=== PATIENT | female | born 1960 | race Caucasian/White ===

== ENCOUNTER 2023-12-20 04:00 | Inpatient (IN) | payer BC ==
[2023-12-20 04:41] LABS: Absolute Basophils 0.1 K/uL (0-0.5); Absolute Lymphocytes (CBC) 0.7 K/uL (0.7-4.9); Absolute Monocytes 0.4 K/uL (0.1-1.3); Absolute Neutrophil 10.5 K/uL (1.8-8.0); Basophils % 0.6 % (0-1.3); Eosinophils % 0.1 % (0-4.4); Hemoglobin 13.1 g/dL (12.0-15.0); Lymphocytes % 5.8 % (15.3-44.8); MCH 28.2 pg (27.0-35.0); MCV 88.1 fL (80-100); MPV 6.9 fL (7.6-11.3); Monocytes % 3.6 % (3.3-12.3); Neutrophils % 89.9 % (41.7-73.7); Platelets 327 thou/uL (152-406); RBC Red Blood Cell Count 4.66 M/uL (3.86-4.86); Red Cell Distribution Width 15.7 % (12.1-15.2)
[2023-12-20] MEDS ORDERED: HALOPERIDOL LACT 5 MG/ML INJ ONE (04:52)
[2023-12-20] MEDS ORDERED: FAMOTIDINE 20 MG/2 ML VIAL IV ONE (04:52)
[2023-12-20] MEDS ORDERED: ONDANSETRON 4 MG/2 ML VIAL ONE ×2 (04:52→06:34)
[2023-12-20] MEDS ORDERED: MORPHINE 4 MG/ML SYR ONE ×2 (04:52→06:35)
[2023-12-20] MEDS ORDERED: KETOROLAC 30 MG/ML INJ ONE (04:52)
[2023-12-20] MEDS ORDERED: NA CHLORIDE 0.9% 1,000 ML ONE ×2 (04:53→12:37)
[2023-12-20 05:07] LABS: Albumin 3.8 g/dL (3.4-5.0); Anion Gap 8.9 mEq/L (5.0-15.0); Bilirubin Total 0.3 mg/dL (0.2-1.0); Globulin 3.8 g/dL (2.3-3.5); Potassium 3.9 mEq/L (3.5-5.1); Protein, Total 7.6 g/dL (6.4-8.2)
[2023-12-20 05:31] LABS: Band Neutrophils 11 % (0-1); Differential Total Cells Count 100; Lymphocytes 9 % (15-42); Monocytes 3 % (0-10); Segmented Neutrophils 77 % (40-80)
[2023-12-20 05:32] LABS: Blood Morphology Comment NOT SEEN (NOT SEEN); Platelet Estimate ADEQ
--- NOTE | 2023-12-20 06:15 | EDPHYS ---
Physician Documentation [facility] Name: Debra Lowery Age: 63 yrs Sex: Female : 1960 Arrival Date: 12/20/2023 Time: 04:00 Bed 18 Private MD: ED Physician Jaime Ortiz HPI: 12/19 04:17 This 63 yrs old Female presents to ER via EMS with complaints of epigastric sp4 pain . 06:14 63-year-old female with a past medical history of hypertension presents with acute sp4 upper abdominal pain associated with vomiting. Pain started this morning... Historical: - Allergies: 04:07 No Known Allergies; vc1 - Home Meds: 04:07 metoprolol tartrate 50 mg Oral tablet [Active]; amlodipine 10 mg tablet [Active]; vc1 Seroquel 200 mg Oral tablet every day at bedtime [Active]; levocertrizine 5 mg nightly [Active]; - PMHx: 04:07 Hypertensive disorder; vc1 - PSHx: 04:07 None; vc1 - Immunization history:: Client reports having NOT received the Covid vaccine. Flu vaccine is not up to date. - Infectious Disease History:: Denies. - Social history:: Smoking status: Patient reports the use of cigarette tobacco products, smokes one-half pack cigarettes per day. - Family history:: not pertinent. ROS: 06:14 Constitutional: Negative for fever, chills, and weight loss, positive upper abdominal sp4 pain positive vomiting 06:14 All other systems are negative, Exam: 06:14 Constitutional: This is a well developed, well nourished patient who is awake, alert, sp4 and in no acute distress. Head/Face: Normocephalic, atraumatic. Eyes: Pupils equal round and reactive to light, extra-ocular motions intact. Lids and lashes normal. Conjunctiva and sclera are not injected. Cornea within normal limits. Periorbital areas with no swelling, redness, or edema. ENT: Nares patent. No nasal discharge, no septal abnormalities noted. Tympanic membranes are normal and external auditory canals are clear. Oropharynx with no redness, swelling, or masses, exudates, or evidence of obstruction, uvula midline. Mucous membranes moist. Neck: Trachea midline, no thyromegaly or masses palpated, and no cervical lymphadenopathy. Supple, full range of motion without nuchal rigidity, or vertebral point tenderness. Chest/axilla: Normal chest wall appearance and motion. Nontender with no deformity. No lesions are appreciated. Cardiovascular: Regular rate and rhythm with a normal S1 and S2. No gallops, murmurs, or rubs. Normal PMI, no JVD. No pulse deficits. Respiratory: Lungs have equal breath sounds bilaterally, clear to auscultation and percussion. No rales, rhonchi or wheezes noted. No increased work of breathing, no retractions or nasal flaring. Abdomen/GI: Soft, with normal bowel sounds. No distension or tympany. No guarding or rebound. Mild epigastric tenderness Back: No spinal tenderness. No costovertebral tenderness. Skin: Warm, dry with normal turgor. Normal color with no rashes, no lesions, and no evidence of cellulitis. MS/ Extremity: Pulses equal, no cyanosis. Neurovascular intact. Full, normal range of motion. Neuro: Awake and alert, GCS 15, oriented to person, place, time, and situation. Cranial nerves II-XII grossly intact. Motor strength 5/5 in all extremities. Sensory grossly intact. Psych: Awake, alert, with orientation to person, place and time. Behavior, mood, and affect are within normal limits Vital Signs: 04:05 BP 149 / 95; Pulse 96; Resp 20; Temp 97.8; Pulse Ox 88% on R/A; Weight 72.57 kg; Height vc1 5 ft. 3 in. ; Pain 10/10; 05:07 BP 147 / 101; Pulse 90; Resp 19 S; Pulse Ox 94% on 2 lpm NC; lg3 06:32 BP 158 / 103; Pulse 92; Resp 19; Pulse Ox 93% on 2 lpm NC; vc1 04:05 Body Mass Index 28.34 (72.57 kg, 160.02 cm) vc1 04:05 Pain Scale: Adult vc1 Jasper Coma Score: 06:14 Eye Response: spontaneous(4). Motor Response: obeys commands(6). Verbal Response: sp4 oriented(5). Total: 15. MDM: 04:19 Patient medically screened. sp4 06:09 ED course: EXAM: US Abdomen Limited, Gallbladder CLINICAL HISTORY: The patient is 63 sp4 years old and is Female; abd pain TECHNIQUE: Real-time ultrasound of the right upper quadrant with image documentation. COMPARISON: No relevant prior studies available. FINDINGS: Gallbladder: 3 mm gallbladder polyp. Possible tiny stones in the gallbladder fundus. Gallbladder wall thickness 2.7 mm. Negative sonographic Singh sign. Common bile duct: Common bile duct 4.7 mm in diameter. No stones. No dilation. Pancreas: Unremarkable as visualized. IMPRESSION: 3 mm gallbladder polyp. Possible tiny stones in the gallbladder fundus. Electronically signed by: Hallie Foster MD 12/20/2023 05:38 AM. 06:10 ED course: CT - IMPRESSION: 1. Findings consistent with acute interstitial edematous sp4 pancreatitis. No evidence of fluid collection. Correlate with pancreatic enzymes. 2. Mildly enlarged common bile duct, although visualized normal caliber on comparison same-day ultrasound. If there is concern for gallstone pancreatitis, MRCP is recommended. 3. Additional chronic and incidental findings above.. 06:14 Differential Diagnosis altered mental status, sepsis, flu. Data reviewed: vital signs, sp4 nurses notes, EMS record, lab test result(s), radiologic studies, CT scan, ultrasound. Consideration of Admission/Observation Patient was admitted/placed on observation. Escalation of care including admission/observation considered. Management of patient was discussed with the following: Hospitalist: Admitting team . ED course: Patient has signs of acute pancreatitis with elevated lipase findings indicative of pancreatitis on the CT. warrants admission for further management. 12/19 04:19 Order name: CBC with Diff; Complete Time: 06:08 sp4 12/19 04:19 Order name: CMP; Complete Time: 06:08 sp4 12/19 04:19 Order name: Lipase; Complete Time: 06:08 sp4 12/19 04:19 Order name: Urinalysis w/ reflexes; Complete Time: 07:00 sp4 12/19 04:57 Order name: Manual Differential; Complete Time: 06:08 EDMS 12/19 12:11 Order name: CBC with Automated Diff EDMS 12/19 12:11 Order name: CBC with Automated Diff EDMS 12/19 12:11 Order name: Comprehensive Metabolic Panel EDMS 12/19 12:11 Order name: Comprehensive Metabolic Panel EDMS 12/19 12:11 Order name: Lipid Profile EDHI 12/19 12:11 Order name: Lipid Profile EDMS 12/19 12:11 Order name: Protime (+INR) EDMS 12/19 12:11 Order name: Protime (+INR) EDMS 12/19 12:11 Order name: PTT, Activated Partial Thromb EDMS 12/19 12:11 Order name: PTT, Activated Partial Thromb EDMS 12/19 12:11 Order name: Troponin High Sensitivity EDMS 12/19 12:11 Order name: Troponin High Sensitivity EDMS 12/19 12:11 Order name: Lipase EDMS 12/19 04:19 Order name: CT Abd/Pelvis - IV Contrast Only sp4 12/19 04:58 Order name: Abdomen Exam Limited EDMS 12/19 07:05 Order name: Cholangiogram EDHI 12/19 12:11 Order name: CONS Physician Consult EDHI 12/19 04:19 Order name: IV Saline Lock; Complete Time: 04:46 sp4 12/19 04:19 Order name: Labs collected and sent; Complete Time: 04:46 sp4 Administered Medications: 05:05 Drug: Haloperidol IVP 2.5 mg/50 mL 2.5 mg IVP once; Place patient on a monitoring manager lg3 Route: IVP; Site: right antecubital; 05:20 Follow up: Response: No adverse reaction rs5 05:05 Drug: NS 0.9% IV 1000 ml IV at 1 bolus Per protocol; 1000 mL bolus Route: IV; Rate: 1 lg3 bolus; Site: right antecubital; 05:30 Follow up: Response: No adverse reaction rs5 05:05 Drug: Famotidine IVP 20 mg IVP once; dilute with 10 mL 0.9% NaCl; give over 2 minutes lg3 Route: IVP; Site: right antecubital; 05:30 Follow up: Response: No adverse reaction rs5 05:05 Drug: TORadol - Ketorolac IVP 15 mg IVP once Route: IVP; Site: right antecubital; lg3 05:20 Follow up: Response: No adverse reaction rs5 05:05 Drug: Ondansetron IVP 4 mg IVP once; over 2 minutes Route: IVP; Site: right antecubital;lg3 05:20 Follow up: Response: No adverse reaction rs5 05:05 Drug: morphine IVP or IV 4 mg IVP once over 4 mins Route: IVP; Infused Over: 4 mins; lg3 Site: right antecubital; 05:20 Follow up: Response: No adverse reaction rs5 07:11 Drug: morphine IVP or IV 4 mg IVP once over 4 mins Route: IVP; Infused Over: 4 mins; vc1 Site: right antecubital; 07:11 Drug: Ondansetron IVP 4 mg IVP once; over 2 minutes Route: IVP; Site: right antecubital;vc1 07:11 Drug: D5-1/2 NS with KCl IV 20 mEq/L 1000 ml IV at 125 ml/hr continuous Route: IV; vc1 Rate: 125 ml/hr; Site: right antecubital; Disposition Summary: 12/20/23 06:14 Hospitalization Ordered Notes: Hospitalization Status: Inpatient Admission sp4 Provider: Juan Pablo Roberson spChantelle Condition: Stable sp4 Problem: new sp4 Symptoms: have improved sp4 Bed/Room Type: Standard sp4 Location: Telemetry/MedSurg (Inpatient)(12/20/23 14:27) rs5 Room Assignment: 426(12/20/23 15:01) bp Diagnosis - Acute pancreatitis, abdominal pain with vomiting sp4 Forms: - Medication Reconciliation Form sp4 - SBAR form sp4 - Leadership Thank You Letter sp4 Signatures: Dispatcher [employer] EDJuan Carlos Goode RN RN bp Graciela Hays RN RN lg3 Yennifer Worthy RN RN vc1 Lo Acuna rv1 Nick Lomax RN RN rs5 Jaime Ortiz MD MD sp4 Ekaterina Hicks, PERIPHERAL VASCULAR TECH PERIPHERAL VASCULAR TECH [facility] Corrections: (The following items were deleted from the chart) 04:20 04:20 Abdomen Limited+US.RAD.BRZ ordered. EDMS EDMS 04:20 04:20 Abdomen Pelvis W Con+CT.RAD.BRZ ordered. EDMS EDMS 06:26 06:14 Telemetry/MedSurg (Inpatient) sp4 rv1 06:26 06:14 sp4 rv1 14:27 06:26 BR ER HOLD rv1 rs5 14:27 06:26 ERHOLD- rv1 rs5 15:01 14:27 404 rs5 bp
--- NOTE | 2023-12-20 06:15 | ER ---
Nurse's Notes [facility] Name: Debra Lowery Age: 63 yrs Sex: Female : 1960 Arrival Date: 12/20/2023 Time: 04:00 Bed 18 Private MD: Diagnosis: Acute pancreatitis, abdominal pain with vomiting Presentation: 12/19 04:05 Chief complaint: EMS states: epigastic pain times 3 weeks with vomiting times 3. vc1 Coronavirus screen: At this time, the client does not indicate any symptoms associated with coronavirus-19. Ebola Screen: Patient negative for fever greater than or equal to 101.5 degrees Fahrenheit, and additional compatible Ebola Virus Disease symptoms Patient denies exposure to infectious person. Patient denies travel to an Ebola-affected area in the 21 days before illness onset. No symptoms or risks identified at this time. Initial Sepsis Screen: Does the patient meet any 2 criteria? No. Patient's initial sepsis screen is negative. Does the patient have a suspected source of infection? No. Patient's initial sepsis screen is negative. Risk Assessment: Do you want to hurt yourself or someone else? Patient reports no desire to harm self or others. Onset of symptoms is unknown. Care prior to arrival: Medication(s) given: zofran 4 mg, IV initiated. 20 GA, in the right antecubital area. Activity prior to arrival: vomiting. Mechanism of Injury: No Mechanism of Injury. Transition of care: patient was not received from another setting of care. 04:05 Method Of Arrival: EMS: [facility] 04:05 Acuity: CESAR 3 vc1 Triage Assessment: 04:09 General: Appears in no apparent distress. uncomfortable, obese, Behavior is vc1 cooperative, restless. Pain: Complains of pain in epigastric area Pain does not radiate. Pain currently is 10 out of 10 on a pain scale. Quality of pain is described as sharp, stabbing, Pain began suddenly, 3 weeks ago Is continuous, Alleviated by medications. EENT: No deficits noted. No signs and/or symptoms were reported regarding the EENT system. Neuro: Level of Consciousness is awake, alert, obeys commands, Oriented to person, place, time, situation, Appropriate for age. Cardiovascular: No deficits noted. Respiratory: Airway is patent Respiratory effort is even, unlabored, Respiratory pattern is regular, symmetrical. GI: Abdomen is round non-distended, Reports epigastric pain, nausea, vomiting. : No deficits noted. No signs and/or symptoms were reported regarding the genitourinary system. Derm: No deficits noted. No signs and/or symptoms reported regarding the dermatologic system. Musculoskeletal: No deficits noted. No signs and/or symptoms reported regarding the musculoskeletal system. Historical: - Allergies: 04:07 No Known Allergies; vc1 - Home Meds: 04:07 metoprolol tartrate 50 mg Oral tablet [Active]; amlodipine 10 mg tablet [Active]; vc1 Seroquel 200 mg Oral tablet every day at bedtime [Active]; levocertrizine 5 mg nightly [Active]; - PMHx: 04:07 Hypertensive disorder; vc1 - PSHx: 04:07 None; vc1 - Immunization history:: Client reports having NOT received the Covid vaccine. Flu vaccine is not up to date. - Infectious Disease History:: Denies. - Social history:: Smoking status: Patient reports the use of cigarette tobacco products, smokes one-half pack cigarettes per day. - Family history:: not pertinent. Screenin:11 [facility] ED Fall Risk Assessment (Adult) History of falling in the last 3 months, vc1 including since admission No falls in past 3 months (0 pts) Confusion or Disorientation No (0 pts) Intoxicated or Sedated No (0 pts) Impaired Gait No (0 pts) Mobility Assist Device Used No (0 pt) Altered Elimination No (0 pt) Score/Fall Risk Level 0 - 2 = Low Risk Oriented to surroundings, Maintained a safe environment, Educated pt \T\ family on fall prevention, incl call for assistance when getting out of bed. Abuse screen: Denies threats or abuse. Nutritional screening: No deficits noted. Tuberculosis screening: No symptoms or risk factors identified. Assessment: 04:05 General: see triage assessment. vc1 05:00 General: Behavior is anxious. Neuro: Jade Agitation-Sedation Scale (RASS): +1 lg3 Restless Level of Consciousness is awake, alert, obeys commands. 06:31 Reassessment: Patient appears in no apparent distress at this time. No changes from vc1 previously documented assessment. Patient and/or family updated on plan of care and expected duration. Pain level reassessed. Patient is alert, oriented x 3, equal unlabored respirations, skin warm/dry/pink. Patient states symptoms have not improved. 06:44 Reassessment: No changes from previously documented assessment. Patient and/or family vc1 updated on plan of care and expected duration. Pain level reassessed. Patient is alert, oriented x 3, equal unlabored respirations, skin warm/dry/pink. 07:28 General: Appears in no apparent distress. uncomfortable, Behavior is calm, cooperative. rs5 Pain: Complains of pain in abdomen Pain currently is 3 out of 10 on a pain scale. Quality of pain is described as aching, Is continuous. Neuro: Level of Consciousness is awake, alert, obeys commands, Oriented to person, place, time, situation. Cardiovascular: Patient's skin is warm and dry. Rhythm is regular. Respiratory: Airway is patent Respiratory effort is even, unlabored, Respiratory pattern is regular, symmetrical. GI: Abdomen is round non-distended, Abd is soft and non tender X 4 quads. : No signs and/or symptoms were reported regarding the genitourinary system. EENT: No signs and/or symptoms were reported regarding the EENT system. Derm: Skin is intact, Skin is pink, warm \T\ dry. Musculoskeletal: Range of motion: intact in all extremities. Vital Signs: 04:05 BP 149 / 95; Pulse 96; Resp 20; Temp 97.8; Pulse Ox 88% on R/A; Weight 72.57 kg; Height vc1 5 ft. 3 in. ; Pain 10/10; 05:07 BP 147 / 101; Pulse 90; Resp 19 S; Pulse Ox 94% on 2 lpm NC; lg3 06:32 BP 158 / 103; Pulse 92; Resp 19; Pulse Ox 93% on 2 lpm NC; vc1 04:05 Body Mass Index 28.34 (72.57 kg, 160.02 cm) vc1 04:05 Pain Scale: Adult vc1 Mary Coma Score: 06:14 Eye Response: spontaneous(4). Motor Response: obeys commands(6). Verbal Response: sp4 oriented(5). Total: 15. ED Course: 04:05 Patient arrived in ED. vc1 04:07 Triage completed. vc1 04:12 Arm band placed on right wrist. vc1 04:13 Patient has correct armband on for positive identification. Bed in low position. Call vc1 light in reach. Side rails up X2. Pulse ox on. NIBP on. 04:13 Maintain EMS IV. Dressing intact. Good blood return noted. Site clean \T\ dry. Gauge \T\ vc 1 site: 20g RAC. 04:17 Jaime Ortiz MD is Attending Physician. sp4 05:04 hall monitor on. lg3 05:06 Yennifer Worthy, RN is Primary Nurse. vc1 05:23 Abdomen Exam Limited In Process Unspecified. EDMS 05:43 CT Abd/Pelvis - IV Contrast Only In Process Unspecified. EDMS 06:14 Juan Pablo Roberson is Hospitalizing Provider. sp4 06:57 Ekaterina Hicks NP is PHCP. rlh 07:26 No provider procedures requiring assistance completed. rs5 08:21 Cholangiogram In Process Unspecified. EDMS Administered Medications: 05:05 Drug: Haloperidol IVP 2.5 mg/50 mL 2.5 mg IVP once; Place patient on a potline monitor lg3 Route: IVP; Site: right antecubital; 05:20 Follow up: Response: No adverse reaction rs5 05:05 Drug: NS 0.9% IV 1000 ml IV at 1 bolus Per protocol; 1000 mL bolus Route: IV; Rate: 1 lg3 bolus; Site: right antecubital; 05:30 Follow up: Response: No adverse reaction rs5 05:05 Drug: Famotidine IVP 20 mg IVP once; dilute with 10 mL 0.9% NaCl; give over 2 minutes lg3 Route: IVP; Site: right antecubital; 05:30 Follow up: Response: No adverse reaction rs5 05:05 Drug: TORadol - Ketorolac IVP 15 mg IVP once Route: IVP; Site: right antecubital; lg3 05:20 Follow up: Response: No adverse reaction rs5 05:05 Drug: Ondansetron IVP 4 mg IVP once; over 2 minutes Route: IVP; Site: right antecubital;lg3 05:20 Follow up: Response: No adverse reaction rs5 05:05 Drug: morphine IVP or IV 4 mg IVP once over 4 mins Route: IVP; Infused Over: 4 mins; lg3 Site: right antecubital; 05:20 Follow up: Response: No adverse reaction rs5 07:11 Drug: morphine IVP or IV 4 mg IVP once over 4 mins Route: IVP; Infused Over: 4 mins; vc1 Site: right antecubital; 07:11 Drug: Ondansetron IVP 4 mg IVP once; over 2 minutes Route: IVP; Site: right antecubital;vc1 07:11 Drug: D5-1/2 NS with KCl IV 20 mEq/L 1000 ml IV at 125 ml/hr continuous Route: IV; vc1 Rate: 125 ml/hr; Site: right antecubital; Medication: 04:13 VIS not applicable for this client. vc1 Outcome: 06:14 Decision to Hospitalize by Provider. sp4 15:07 Patient left the ED. mb9 Signatures: Dispatcher [employer] EDMS Graciela Hays RN RN lg3 Yennifer Worthy RN RN vc1 Brenda Oseguera RN RN mb9 Nick Lomax RN RN rs5 Jaime Ortiz MD MD sp4 Ekaterina Hicks NP [facility]
[2023-12-20] MEDS ORDERED: D5.45NS W/KCL 20MEQ 1,000 ML IV ONE (06:35)
[2023-12-20 06:44] LABS: Sqamous Epithelial <5 /HPF (None Seen); Urine Bacteria None Seen /HPF (<20); Urine Bilirubin NEGATIVE (Negative); Urine Blood Negative (Negative); Urine Clarity Clear (Clear); Urine Color Colorless (Yellow); Urine Culture Reflex Order NOT NEEDED; Urine Glucose NEGATIVE (Negative); Urine Ketones NEGATIVE (Negative); Urine Microscopic Reflex YN ORDER UMIC; Urine Nitrite NEGATIVE (Negative); Urine Protein NEGATIVE (Negative); Urine RBC <5 /HPF (None Seen); Urine Urobilinogen Normal (Normal); Urine WBC <5 /HPF (<5); Urine pH 6.5 (5.0-7.0)
--- NOTE | 2023-12-20 07:50 | P.HP ---
Certification for Inpatient Patient admitted to: Inpatient With expected LOS: >2 Midnights Patient will require the following post-hospital care: None Practitioner: I am a practitioner with admitting privileges, knowledge of patient current condition, hospital course, and medical plan of care. Services: Services provided to patient in accordance with Admission requirements found in Title 42 Section 412.3 of the Code of Federal Regulations Patient History Date of Service: 12/20/23 Reason for admission: Gallstone pancreatitis History of Present Illness: Patient is a 63-year-old female who came to the hospital with abdominal pain. Pain was in the right upper quadrant. Patient denies any rebound or guarding. She has a family history of cholangiocarcinoma. Her brother recently of cholangiocarcinoma. He was treated at [facility]. Patient diagnostic studies were indicative of polyp in the gallbladder. Patient's pain is better controlled. Patient does not have any evidence of obstructive jaundice. Patient bilirubin is stable. Will go ahead and consult general surgery for further evaluation. MRCP is being obtained. Patient has a history of multiple medical issues including hypertension, allergic rhinitis and insomnia. Patient is on metoprolol, amlodipine, Zyrtec, and Seroquel. At this time, patient will be admitted for observation. - Past Medical/Surgical History -: Hypertension -: Insomnia -: Allergic rhinitis -: Prior knee surgery - Family History Brother Notes: Cholangiocarcinoma - Social History Smoking Status: Former smoker Alcohol use: No CD- Drugs: No Review of Systems 10-point ROS is otherwise unremarkable Physical Examination - Vital Signs Temperature: 98 F Blood Pressure: 140/80 Pulse: 100 Respirations: 18 Pulse Ox (%): 95 - Physical Exam General: Alert, In no apparent distress, Oriented x3 HEENT: Atraumatic, PERRLA, Mucous membr. moist/pink, EOMI, Sclerae nonicteric Neck: Supple, 2+ carotid pulse no bruit, No LAD, Without JVD or thyroid abnormality Respiratory: Clear to auscultation bilaterally, Normal air movement Cardiovascular: Regular rate/rhythm, Normal S1 S2 Gastrointestinal: Normal bowel sounds, Tenderness (Mild right upper quadrant tenderness) Musculoskeletal: No tenderness Integumentary: No rashes Neurological: Normal gait, Normal speech, Normal strength at 5/5 x4 extr, Normal tone, Normal affect Lymphatics: No axilla or inguinal lymphadenopathy - Studies Laboratory Data (last 24 hrs) 12/20/23 12/20/23 04:28 04:28 WBC 11.70 H Hgb 13.1 Hct 41.0 Plt Count 327 Sodium 133 L Potassium 3.9 BUN 10 Creatinine 0.58 Glucose 121 H Total Bilirubin 0.3 AST 15 ALT 22 Alkaline Phosphatase 113 Lipase 412 H Assessment & Plan - Problems (Diagnosis) (1) Gallstone pancreatitis Current Visit: Yes Status: Acute (2) Gallbladder polyp Current Visit: Yes Status: Acute (3) Hypertension Current Visit: Yes Status: Acute (4) Allergic rhinitis Current Visit: Yes Status: Acute (5) Family history of cholangiocarcinoma Current Visit: Yes Status: Acute - Plan Plan: 1. Patient with pancreatitis secondary to gallstones. Patient has a history of alcohol use. Patient's imaging studies revealed a gallbladder polyp. With patient's family history, it may be beneficial to proceed with laparoscopic cholecystectomy. MRCP to rule out choledocholithiasis.. If patient does have stone in the bile duct patient may need transfer to a tertiary care facility for ERCP. However, because of the polyp finding it may be beneficial to go ahead and get the gallbladder removed. At this time, patient will be admitted to the hospital for further evaluation. 2. History of hypertension; continue with amlodipine and metoprolol 3. History of insomnia; continue with Seroquel 4. History of alcohol use; counseled regarding cessation secondary to pancreatitis. Possibly related to cholelithiasis and alcohol use. Patient will be admitted for inpatient hospitalization 5. GI DVT prophylax Discharge Plan: Home Plan to discharge in: Greater than 2 days - Advance Directives Does patient have a Living Will: No Does patient have a Durable POA for Healthcare: No - Code Status/Comfort Care Code Status Assessed: Yes Code Status: Full Code Critical Care: No Time Spent Managing PTS Care (In Minutes): 45
[2023-12-20] MEDS: LORazepam 2 MG/ML VIAL IV ONE (09:30)
[2023-12-20] MEDS: MORPHINE 4 MG/ML SYR IV ONE ×2 (10:00→23:52)
--- NOTE | 2023-12-20 10:23 | RAD REPORT ---
EXAM DESCRIPTION: CT ABDOMEN PELVIS WITH IV CONTRAST CLINICAL HISTORY: Female, 63 years old, ABD PAIN COMPARISON: Standard abdomen ultrasound, CT abdomen/pelvis 03/12/2021 (report only available at the t indu of dictation) TECHNIQUE: CT acquisition of the abdomen and pelvis following the administration of IV contrast. Cor onal and sagittal reformatted images provided. This exam was performed according to departmental dose -optimization program which includes automated exposure control, adjustment of the mA and/or kV accor ding to patient size, and/or use of iterative reconstruction technique. FINDINGS: SUPPORTIVE DEVICES: None. LOWER CHEST: Mild basilar scarring/atelectasis. Normal heart size with multivessel coronary atheroscl erosis. ABDOMEN AND PELVIS: Liver: Normal. Gallbladder and bile ducts: Unremarkable gallbladder. Common bile duct diameter measures 8 mm. Pancreas: Parenchymal and surrounding soft tissue stranding/edema along the majority of the pancreas, sparing the tail. No evidence of necrosis or fluid collection. Spleen: Normal. Adrenal glands: Normal. Kidneys and ureters: Normal. Bladder: Normal. Reproductive organs: Unremarkable. GI tract: Normal caliber without wall thickening. Normal appendix. Lymph nodes: No evident adenopathy. Peritoneum: Ascites along majority of the posterior right peritoneum with no fluid collection or free air. Abdominal wall: No significant hernia. Vessels: Atherosclerosis without evidence of aneurysm. MUSCULOSKELETAL: No acute osseous abnormality. Degenerative change of the spine and pelvis. IMPRESSION: 1. Findings consistent with acute interstitial edematous pancreatitis. No evidence of fluid collection. Correlate with pancreatic enzymes. 2. Mildly enlarged common bile duct, although visualized normal caliber on comparison same-day ultr asound. If there is concern for gallstone pancreatitis, MRCP is recommended. 3. Additional chronic and incidental findings above. Electronically signed by: De Rossi MD 12/20/2023 06:01 AM CDT Due to temporary technical issues with the PACS/Fluency reporting system, reports are being signed by the in house radiologist without review as a courtesy to ensure prompt reporting. The interpreting r adiologist is fully responsible for the content of the report.
--- NOTE | 2023-12-20 10:24 | RAD REPORT ---
EXAM DESCRIPTION: US Abdomen Limited, Gallbladder CLINICAL HISTORY: The patient is 63 years old and is Female; abd pain TECHNIQUE: Real-time ultrasound of the right upper quadrant with image documentation. COMPARISON: No relevant prior studies available. FINDINGS: Gallbladder: 3 mm gallbladder polyp. Possible tiny stones in the gallbladder fundus. Gallbladder wall thickness 2.7 mm. Negative sonographic Singh sign. Common bile duct: Common bile duct 4.7 mm in diameter. No stones. No dilation. Pancreas: Unremarkable as visualized. IMPRESSION: 3 mm gallbladder polyp. Possible tiny stones in the gallbladder fundus. Electronically signed by: Hallie Foster MD 12/20/2023 05:38 AM CDT Due to temporary technical issues with the PACS/Fluency reporting system, reports are being signed by the in house radiologist without review as a courtesy to ensure prompt reporting. The interpreting r adiologist is fully responsible for the content of the report.
[2023-12-20] MEDS ORDERED: LORazepam 2 MG/ML VIAL ONE (12:37)
[2023-12-20] MEDS: NA CHLORIDE 0.9% 1,000 ML IV SCH (12:43)
--- NOTE | 2023-12-20 14:21 | RAD REPORT ---
EXAM DESCRIPTION: MRI - Cholangiogram - 12/20/2023 1:39 pm CLINICAL HISTORY: Acute pancreatitis COMPARISON: Abdomen Pelvis W Contrast dated 12/20/2023; Abdomen Exam Limited dated 12/20/2023 TECHNIQUE: Multiplanar multisequence MRI of the abdomen, obtained without IV contrast, utilizing M PATENT ATTORNEY sequences. FINDINGS: Normal distention of the gallbladder. Low intrinsic signal intensity of the gallbladder co ntent on the MRCP sequence, suggesting sludge. No appreciable filling defects otherwise to suggest ga llstones. Mild central intrahepatic biliary ductal dilation. Common bile duct is prominent in caliber, 12 millimeter. No filling defects to suggest choledocholith iasis. Smooth tapering at the ampulla. Main pancreatic duct is not dilated. The visualized aspects of the liver, spleen, adrenal glands, and kidneys are unremarkable. Peripancr eatic edematous changes again seen. Visualized aspects of the bowel are unremarkable. No suspicious osseous lesions. Right more than left dependent atelectatic changes. IMPRESSION: Prominent caliber of the common bile duct, 12 mm. No evidence of choledocholithiasis, ma ss, or stricture. Sequelae of acute pancreatitis, better evaluated on the prior abdominal CT. Gallbladder sludge.
[2023-12-20] MEDS: MORPHINE 4 MG/ML SYR IV PRN (15:49)
[2023-12-20 16:31] VITALS: BMI 28.3
[2023-12-20] MEDS: ONDANSETRON 4 MG/2 ML VIAL IV PRN (20:43)
[2023-12-21] MEDS: PIPER TAZO 3.375 GM in NA CHLORIDE 0.9% 100 ML IV SCH (01:03)
[2023-12-21 07:22] LABS: Absolute Lymphocytes (CBC) 0.4 K/uL (0.7-4.9); Absolute Monocytes 0.2 K/uL (0.1-1.3); Absolute Neutrophil 6.3 K/uL (1.8-8.0); Basophils % 0.2 % (0-1.3); Hematocrit 38.4 % (36.0-45.0); Hemoglobin 12.4 g/dL (12.0-15.0); Lymphocytes % 5.5 % (15.3-44.8); MCH 28.8 pg (27.0-35.0); MCHC 32.3 g/dL (32.0-36.0); MPV 7.2 fL (7.6-11.3); Monocytes % 2.9 % (3.3-12.3); Neutrophils % 91.4 % (41.7-73.7); Platelets 256 thou/uL (152-406); RBC Red Blood Cell Count 4.31 M/uL (3.86-4.86)
[2023-12-21 07:25] LABS: PT Prothrombin Time 11.5 SECONDS (9.5-12.5); PTT, Activated Partial Thromb 25.7 SECONDS (24.3-36.9); Protime INR 1.05
[2023-12-21 07:40] LABS: Albumin 2.9 g/dL (3.4-5.0); Albumin/Globulin Ratio 0.9 (1.1-1.8); Anion Gap 5.9 mEq/L (5.0-15.0); Bilirubin Total 0.4 mg/dL (0.2-1.0); Globulin 3.3 g/dL (2.3-3.5); Potassium 3.9 mEq/L (3.5-5.1); Protein, Total 6.2 g/dL (6.4-8.2)
[2023-12-21] MEDS: HYDROMORPHONE HCL 1 MG/ML INJ IV ONE (10:18)
[2023-12-21] MEDS: METOPROLOL TARTRATE 5 MG/5 ML INJ IV STA (10:19)
--- NOTE | 2023-12-21 11:38 | RAD REPORT ---
[facility] 10[facility]21 am CLINICAL HISTORY: pneumonia COMPARISON: Abdomen Pelvis W Contrast dated 12/20/2023 TECHNIQUE: Portable AP view of the chest. FINDINGS: Patchy peripheral left mid to lower lung airspace opacification. Possible small left effus ion. No pneumothorax. The cardiomediastinal contours are unremarkable. IMPRESSION: Patchy left mid to lower lung airspace opacification, concerning for pneumonia.
[2023-12-21] MEDS: METHYLPREDNISOLONE 125 MG INJ IV SCH (12:12)
[2023-12-21] MEDS: IPRATROPIUM BROM 0.5MG/2.5ML NEB SCH (13:27)
[2023-12-21] MEDS: ALBUTEROL 2.5 MG/3 ML NEB SOL NEB SCH (13:27)
[2023-12-21] MEDS: HYDROMORPHONE HCL 0.5 MG/0.5 ML INJ IV PRN (13:36)
--- NOTE | 2023-12-21 15:40 | EKG ---
Test Date: 2023-12-21 Test Time: 10:34:06 Representative: ELVIS MEASUREMENT RESULTS: Intervals: Rate: 108 GA: 158 QRSD: 72 QT: 330 QTc: 442 [place]: P: 52 GA: 158 QRS: 32 T: 0 INTERPRETIVE STATEMENTS: Sinus tachycardia Otherwise normal ECG No previous ECG available for comparison Electronically Signed On 12-21-23 15:39:09 CDT by Sim Doshi
--- NOTE | 2023-12-22 08:55 | P.PN ---
Subjective Date of Service: 12/22/23 Chief Complaint: Gallstone pancreatitis Patient attempted diet, had worsening pain with nausea vomiting, diet decreased to n.p.o. - Physical Exam General: Alert, In no apparent distress, Oriented x3 HEENT: Atraumatic, PERRLA, Mucous membr. moist/pink, EOMI, Sclerae nonicteric Neck: Supple, 2+ carotid pulse no bruit, No LAD, Without JVD or thyroid abnormality Respiratory: Clear to auscultation bilaterally, Normal air movement Cardiovascular: Regular rate/rhythm, Normal S1 S2 Gastrointestinal: Normal bowel sounds, Tenderness (Mild right upper quadrant tenderness) Musculoskeletal: No tenderness Integumentary: No rashes Neurological: Normal gait, Normal speech, Normal strength at 5/5 x4 extr, Normal tone, Normal affect Lymphatics: No axilla or inguinal lymphadenopathy Review of Systems per HPI Physical Examination - Vital Signs Temperature: 97.5 F Blood Pressure: 153/79 Pulse: 98 Respirations: 18 Pulse Ox (%): 91 Assessment And Plan - Plan Assessment & Plan - Problems (Diagnosis) Gallstone pancreatitis Current Visit: Yes Status: Acute Patient with pancreatitis secondary to gallstones. Patient has a history of alcohol use. Patient's imaging studies revealed a gallbladder polyp. With patient's family history, it may be beneficial to proceed with laparoscopic c holecystectomy. MRCP to rule out choledocholithiasis.. If patient does have stone in the bile duct patient may need transfer to a tertiary care facility for ERCP. However, because of the polyp finding it may be beneficial to go ahead and get the gallbladder removed. At this time, patient will be admitted to the hospital for further evaluation. Advance diet as tolerated, as needed analgesia Gallbladder polyp Current Visit: Yes Status: Acute Allergic rhinitis Current Visit: Yes Status: Acute Family history of cholangiocarcinoma Current Visit: Yes Status: Acute Essential hypertension history of hypertension; continue with amlodipine and metoprolol History of insomnia ; continue with Seroquel History of alcohol use; counseled regarding cessation secondary to pancreatitis. Possibly related to cholelithiasis and alcohol use. Patient will be admitted for inpatient hospitalization GI DVT prophylax Discharge Plan: Home Plan to discharge in: Greater than 2 days Discharge Plan: Home - Code Status/Comfort Care Code Status: Full Code Critical Care: No Time Spent Managing PTS Care (In Minutes): 35
[2023-12-22 11:13] LABS: Absolute Lymphocytes (CBC) 0.2 K/uL (0.7-4.9); Absolute Monocytes 0.3 K/uL (0.1-1.3); Absolute Neutrophil 6.2 K/uL (1.8-8.0); Eosinophils % 0.1 % (0-4.4); Hematocrit 31.9 % (36.0-45.0); Hemoglobin 10.2 g/dL (12.0-15.0); Lymphocytes % 2.9 % (15.3-44.8); MCH 28.4 pg (27.0-35.0); MCV 88.8 fL (80-100); MPV 7.4 fL (7.6-11.3); Platelets 252 thou/uL (152-406); Red Cell Distribution Width 15.8 % (12.1-15.2)
[2023-12-22 11:29] LABS: Albumin 2.5 g/dL (3.4-5.0); Albumin/Globulin Ratio 0.7 (1.1-1.8); Anion Gap 6.2 mEq/L (5.0-15.0); Bilirubin Total 0.3 mg/dL (0.2-1.0); Globulin 3.6 g/dL (2.3-3.5); Potassium 3.2 mEq/L (3.5-5.1); Protein, Total 6.1 g/dL (6.4-8.2)
[2023-12-22 12:04] LABS: Blood Morphology Comment NOTED (NOT SEEN); Hypochromasia 1+; Platelet Estimate ADEQ; White Blood Cell Scan OK (OK)
[2023-12-22] MEDS: PANTOPRAZOLE 40 MG INJ IVP ONE ×3 (13:08→15:30)
[2023-12-22] MEDS: POTASSIUM PHOS 30 MM in NA CHLORIDE 0.9% 500 ML IV ONE (13:35)
[2023-12-22] MEDS ORDERED: IPRATROPIUM BROM 0.5MG/2.5ML NEB PRN (13:41)
[2023-12-22] MEDS: METHYLPREDNISOLONE 125 MG INJ IV SCH (13:41)
[2023-12-22] MEDS ORDERED: ALBUTEROL 2.5 MG/3 ML NEB SOL NEB PRN (13:41)
[2023-12-22] MEDS: PANTOPRAZOLE INJ 80 MG in NA CHLORIDE 0.9% 250 ML IV SCH (14:00)
[2023-12-22] MEDS ORDERED: METOPROLOL TARTRATE 5 MG/5 ML INJ IV PRN (18:44)
[2023-12-22] MEDS: METOPROLOL TAR 25 MG TAB PO ONE (19:38)
[2023-12-22] MEDS: NA CHLORIDE 0.9% 1,000 ML IV SCH (19:49)
[2023-12-22] MEDS: PANTOPRAZOLE 40 MG INJ IVP SCH (20:00)
[2023-12-23] MEDS: METHYLPREDNISOLONE 40 MG INJ IV SCH (00:37)
[2023-12-23] MEDS: METOPROLOL TAR 25 MG TAB PO SCH (05:33)
[2023-12-23 06:49] LABS: Absolute Lymphocytes (CBC) 0.3 K/uL (0.7-4.9); Absolute Monocytes 0.4 K/uL (0.1-1.3); Absolute Neutrophil 7.6 K/uL (1.8-8.0); Hematocrit 29.7 % (36.0-45.0); Hemoglobin 9.8 g/dL (12.0-15.0); Lymphocytes % 3.8 % (15.3-44.8); Monocytes % 4.3 % (3.3-12.3); Neutrophils % 91.9 % (41.7-73.7); Nucleated Red Blood Cells % 0.2 % (0-0); Platelets 273 thou/uL (152-406); RBC Red Blood Cell Count 3.38 M/uL (3.86-4.86); Red Cell Distribution Width 16.3 % (12.1-15.2)
[2023-12-23 07:20] LABS: Albumin 2.3 g/dL (3.4-5.0); Albumin/Globulin Ratio 0.7 (1.1-1.8); Bilirubin Total 0.2 mg/dL (0.2-1.0); Globulin 3.3 g/dL (2.3-3.5); Magnesium 2.1 mg/dL (1.6-2.4); Phosphorus 1.9 mg/dL (2.5-4.9); Protein, Total 5.6 g/dL (6.4-8.2)
--- NOTE | 2023-12-23 07:58 | P.PN ---
Subjective Date of Service: 12/24/23 Chief Complaint: Gallstone pancreatitis Will advance to clear liquid diet today, Worsening pneumonia, IV antibiotics, nebs, Solu-Medrol O2 2 L keep sats greater than 94%, - Physical Exam General: Alert, In no apparent distress, Oriented x3 HEENT: Atraumatic, PERRLA, Mucous membr. moist/pink, EOMI, Sclerae nonicteric Neck: Supple, 2+ carotid pulse no bruit, No LAD, Without JVD or thyroid abnor mality Respiratory: Wheezing, normal air movement Cardiovascular: Regular rate/rhythm, Normal S1 S2 Gastrointestinal: Normal bowel sounds, Tenderness (Mild right upper quadrant tenderness) Musculoskeletal: No tenderness Integumentary: No rashes Neurological: Normal gait, Normal speech, Normal strength at 5/5 x4 extr, Normal tone, Normal affect Lymphatics: No axilla or inguinal lymphadenopathy Review of Systems For HPI Physical Examination - Vital Signs Temperature: 96.9 F Blood Pressure: 108/60 Pulse: 102 Respirations: 18 Pulse Ox (%): 90 Assessment And Plan - Plan Assessment & Plan - Problems (Diagnosis) Gallstone pancreatitis improved Current Visit: Yes Status: Acute Patient with pancreatitis secondary to gallstones. Patient has a history of alcohol use. Patient's imaging studies revealed a gallbladder polyp. With patient's family history, it may be beneficial to proceed with laparoscopic cholecystectomy. MRCP to rule out choledocholithiasis.. If patient does have stone in the bile duct patient may need transfer to a tertiary care facility for ERCP. However, because of the polyp finding it may be beneficial to go ahead and get the gallbladder removed. At this time, patient will be admitted to the hospital for further evaluation. Advance diet as tolerated, as needed analgesia Lipase 221, 96, 79 improving Acute hypoxic respiratory failure secondary to pneumonia , IV antibiotic nebs, steroids, O2 keep sats greater than 92% Microcytic anemia Hemoglobin 12.4, 10.2, 9.8 8 trend H&H Gallbladder polyp Current Visit: Yes Status: Acute Allergic rhinitis Current Visit: Yes Status: Acute Family history of cholangiocarcinoma Current Visit: Yes Status: Acute Essential hypertension history of hypertension; continue with amlodipine and metoprolol History of insomnia ; continue with Seroquel History of alcohol use; counseled regarding cessation secondary to pancreatitis. Possibly related to cholelithiasis and alcohol use. Patient will be admitted for inpatient hospitalization GI DVT prophylax Discharge Plan: Home Plan to discharge in: Greater than 2 days Discharge Plan: Home - Code Status/Comfort Care Code Status: Full Code Critical Care: No Time Spent Managing PTS Care (In Minutes): 35
[2023-12-23] MEDS: FUROSEMIDE 20 MG/ 2ML VIAL IV ONE (12:09)
--- NOTE | 2023-12-23 14:51 | RAD REPORT ---
EXAM DESCRIPTION: RAD - Chest Single View - 12/23/2023 2:38 pm CLINICAL HISTORY: pneumonia COMPARISON: <Comparisons> FINDINGS: Lines: None. Lungs: Increased coarsening of the interstitial markings in the lung bases. Pleural: Blunted left costophrenic angle. Cardiac: The heart size is within normal limits. Mediastinum: Within normal limits. Bones: No acute fractures. Other: None IMPRESSION: Opacities in the lung bases have increased from prior. New small left pleural effusion. This could reflect pneumonia or pneumonitis.
[2023-12-23] MEDS: FUROSEMIDE 20 MG/ 2ML VIAL IV SCH (17:34)
[2023-12-24] MEDS: METOPROLOL TARTRATE 5 MG/5 ML INJ IV STA (05:57)
[2023-12-24 06:46] LABS: Absolute Lymphocytes (CBC) 0.5 K/uL (0.7-4.9); Absolute Monocytes 0.4 K/uL (0.1-1.3); Basophils % 0.1 % (0-1.3); Eosinophils % 0.1 % (0-4.4); Hematocrit 34.5 % (36.0-45.0); Lymphocytes % 5.8 % (15.3-44.8); MCH 28.2 pg (27.0-35.0); MCV 88.1 fL (80-100); MPV 7.6 fL (7.6-11.3); Monocytes % 4.3 % (3.3-12.3); Neutrophils % 89.7 % (41.7-73.7); Nucleated Red Blood Cells % 0.2 % (0-0); Platelets 398 thou/uL (152-406); RBC Red Blood Cell Count 3.91 M/uL (3.86-4.86); Red Cell Distribution Width 16.2 % (12.1-15.2)
[2023-12-24 06:55] LABS: Albumin 2.7 g/dL (3.4-5.0); Albumin/Globulin Ratio 0.7 (1.1-1.8); Anion Gap 7.4 mEq/L (5.0-15.0); Bilirubin Total 0.2 mg/dL (0.2-1.0); Globulin 3.9 g/dL (2.3-3.5); Potassium 3.4 mEq/L (3.5-5.1); Protein, Total 6.6 g/dL (6.4-8.2)
--- NOTE | 2023-12-24 06:59 | RAD REPORT ---
EXAM DESCRIPTION: RAD - Chest Single View - 12/24/2023 6:52 am CLINICAL HISTORY: pneumonia COMPARISON: Chest Single View dated 12/23/2023; Chest Single View dated 12/21/2023hest Single View date d 12/23/2023; Chest Single View dated 12/21/2023; Abdomen Pelvis W Contrast dated 12/20/2023 FINDINGS: Lines: None. Lungs: Similar basilar airspace disease compared with 12/23/2023. Pleural: Possible small left pleural effusion. Cardiac: The heart size is within normal limits. Mediastinum: Within normal limits. Bones: No acute fractures. Other: None IMPRESSION: Basilar airspace disease similar to 12/23/2023 and possibly representing pneumonia or pn eumonitis.
--- NOTE | 2023-12-24 08:01 | P.PN ---
Subjective Date of Service: 12/24/23 Chief Complaint: Gallstone pancreatitis Will advance to clear liquid diet today, discharge held yesterday secondary to worsening pneumonia Worsening pneumonia, IV antibiotics, nebs, Solu-Medrol O2 2 L keep sats greater than 94%, Home O2 ordered, at patient's bedside, will order home nebulizer prior to discharge - Physical Exam General: Alert, In no apparent distress, Oriented x3 HEENT: Atraumatic, PERRLA, Mucous membr. moist/pink, EOMI, Sclerae nonicteric Neck: Supple, 2+ carotid pulse no bruit, No LAD, Without JVD or thyroid abnormality Respiratory: Wheezing, normal air movement Cardiovascular: Regular rate/rhythm, Normal S1 S2 Gastrointestinal: Normal bowel sounds, Tenderness (Mild right upper quadrant tenderness) Musculoskeletal: No tenderness Integumentary: No rashes Neurological: Normal gait, Normal speech, Normal strength at 5/5 x4 extr, Normal tone, Normal affect Lymphatics: No axilla or inguinal lymphadenopathy Review of Systems per HPI Physical Examination - Vital Signs Temperature: 96.9 F Blood Pressure: 108/60 Pulse: 102 Respirations: 18 Pulse Ox (%): 90 Assessment And Plan - Plan Assessment & Plan - Problems (Diagnosis) Gallstone pancreatitis improved Current Visit: Yes Status: Acute Patient with pancreatitis secondary to gallstones. Patient has a history of alcohol use. Patient's imaging studies revealed a gallbladder polyp. With patient's family history, it may be beneficial to proceed with laparoscopic cholecystectomy. MRCP to rule out choledocholithiasis.. If patient does have stone in the bile duct patient may need transfer to a tertiary care facility for ERCP. However, because of the polyp finding it may be beneficial to go ahead and get the gallbladder removed. At this time, patient will be admitted to the hospital for further evaluation. Advance diet as tolerated, as needed analgesia Lipase 221, 96, 79 improving Acute hypoxic respiratory failure secondary to pneumonia COPD exacerbation Tobacco use Educated on tobacco cessation IV antibiotic nebs, steroids, O2 keep sats greater than 92% Will order home O2, will order home nebulizer Patient needs to follow-up with pulmonary after discharge Microcytic anemia Hemoglobin 12.4, 10.2, 9.8 8 trend H&H Gallbladder polyp Current Visit: Yes Status: Acute Allergic rhinitis Current Visit: Yes Status: Acute Family history of cholangiocarcinoma Current Visit: Yes Status: Acute Essential hypertension history of hypertension; continue with amlodipine and metoprolol History of insomnia ; continue with Seroquel History of alcohol use; counseled regarding cessation secondary to pancreatitis. Possibly related to cholelithiasis and alcohol use. Patient will be admitted for inpatient hospitalization GI DVT prophylax Discharge Plan: Home Plan to discharge in: Greater than 2 days Discharge Plan: Home Critical Care: No Time Spent Managing PTS Care (In Minutes): 35
[2023-12-24 09:53] VITALS: O2SAT 94
[2023-12-24 13:58] VITALS: BP 126/80; TEMP 98.4
--- NOTE | 2023-12-24 14:21 | P.DS ---
Admission Date: 12/20/23 Discharge Date: 12/24/23 Reason for Admission: Gallstone pancreatitis Brief History of Present Illness: Patient is a 63-year-old female who came to the hospital with abdominal pain. Pain was in the right upper quadrant. Patient denies any rebound or guarding. She has a family history of cholangiocarcinoma. Her brother recently of cholangiocarcinoma. He was treated at [facility] [place] [place]. Patient diagnostic studies were indicative of polyp in the gallbladder. Patient's pain is better controlled. Patient does not have any evidence of obstructive jaundice. Patient bilirubin is stable. Will go ahead and consult general surgery for further evaluation. MRCP is being obtained. Patient has a history of multiple medical issues including hypertension, allergic rhinitis and insomnia. Patient is on metoprolol, amlodipine, Zyrtec, and Seroquel. At this time, patient will be admitted for observation. - Physical Exam General: Alert, In no apparent distress, Oriented x3 HEENT: Atraumatic, PERRLA, Mucous membr. moist/pink, EOMI, Sclerae nonicteric Neck: Supple, 2+ carotid pulse no bruit, No LAD, Without JVD or thyroid abnormality Respiratory: Clear to auscultation bilaterally, Normal air movement Cardiovascular: Regular rate/rhythm, Normal S1 S2 Gastrointestinal: Normal bowel sounds, Musculoskeletal: No tenderness Integumentary: No rashes Neurological: Normal gait, Normal speech, Normal strength at 5/5 x4 extr, Normal tone, Normal affect Lymphatics: No axilla or inguinal lymphadenopathy Hospital Course: 63 year-old female patient presented with abdominal pain. Was noted to have pancreatitis. She was also noted to have shortness of breath with COPD exacerbation. Condition improved with as needed analgesics, nebulizers, IV antibiotics. Patient tolerating diet, stable for discharge to home with follow-up appointment with primary care physician. 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 Tobacco use Home O2 ordered, home nebulizer ordered, Discharged home with steroid Dosepak, inhalers, p.o. antibiotics. Educated on alcohol cessation Educated on tobacco cessation Follow-up with pulmonary after discharge. Continue home medicines as previously prescribed GOAL: Clear understanding of disease process INSTRUCTIONS: Physician Discharge Instructions: -DC IV and DC home -Follow-up with PCP in 1 to 2 weeks -Please call Dr. Fu at [phone] if any questions regarding hospital stay -Please call nursing station at [phone] if any nursing or medication questions -Return to the emergency room if symptoms worsen Diet: ADA, low sodium Activity: Fall precautions <Ignacia Luna - Last Filed: 12/24/23 14:18> Admission Date: 12/20/23 Discharge Date: 12/24/23 - Problems (1) Gallstone pancreatitis Status: Acute (2) Gallbladder polyp Status: Acute (3) Hypertension Status: Acute (4) Allergic rhinitis Status: Acute (5) Family history of cholangiocarcinoma Status: Acute Hospital Course: Patient was seen and examined. Events of the last 24 hours have been noted. Spoke with with [facility] regarding patient's clinical picture after evaluating and examining the patient independently. I performed a substantial part of the MDM during this patient's care today. I personally made or approved the documented management plan and acknowledge its risk of complications. I agree with the findings and documentation provided in the [facility]IS's notes. Have encouraged patient to follow-up with gastroenterology and Pulmonary as an outpatient along with Cardiology. Patient is tolerating diet without any pain. Patient denies any complaints. <Darya uF - Last Filed: 12/25/23 12:02> Disposition: ROUTINE DISCHARGE Discharge Condition: FAIR Vital Signs/Physical Exam: Temp Pulse Resp BP Pulse Ox 98.4 F 91 H 18 126/80 94 12/24/23 12:00 12/24/23 12:00 12/24/23 12:00 12/24/23 12:00 12/24/23 12:00 Laboratory Data at Discharge: WBC 8.90 thou/uL (4.3-10.9) 12/24/23 05:55 Hgb 11.0 g/dL (12.0-15.0) L D 12/24/23 05:55 Hct 34.5 % (36.0-45.0) L 12/24/23 05:55 Plt Count 398 thou/uL (152-406) D 12/24/23 05:55 PT 11.5 SECONDS (9.5-12.5) 12/21/23 07:01 INR 1.05 12/21/23 07:01 APTT 25.7 SECONDS (24.3-36.9) 12/21/23 07:01 Sodium 145 mEq/L (136-145) 12/24/23 05:55 Potassium 3.4 mEq/L (3.5-5.1) L D 12/24/23 05:55 BUN 19 mg/dL (7-18) H 12/24/23 05:55 Creatinine 0.74 mg/dL (0.55-1.02) 12/24/23 05:55 Glucose 116 mg/dL (74-106) H 12/24/23 05:55 Phosphorus 1.9 mg/dL (2.5-4.9) L 12/23/23 06:39 Magnesium 2.0 mg/dL (1.6-2.4) 12/24/23 05:55 Total Bilirubin 0.2 mg/dL (0.2-1.0) 12/24/23 05:55 AST 25 U/L (15-37) 12/24/23 05:55 ALT 23 U/L (13-56) 12/24/23 05:55 Alkaline Phosphatase 72 U/L (45-117) D 12/24/23 05:55 Triglycerides 77 mg/dL (<150) 12/21/23 07:01 Cholesterol 172 mg/dL (<200) 12/21/23 07:01 HDL Cholesterol 68 mg/dL (40-60) H 12/21/23 07:01 Cholesterol/HDL Ratio 2.53 12/21/23 07:01 Lipase 327 U/L (13-75) H 12/24/23 05:55 <Ignacia Luna - Last Filed: 12/24/23 14:18> Vital Signs/Physical Exam: Temp Pulse Resp BP Pulse Ox 98.4 F 91 H 18 126/80 94 12/24/23 12:00 12/24/23 12:00 12/24/23 12:00 12/24/23 12:00 12/24/23 12:00 Laboratory Data at Discharge: WBC 8.90 thou/uL (4.3-10.9) 12/24/23 05:55 Hgb 11.0 g/dL (12.0-15.0) L D 12/24/23 05:55 Hct 34.5 % (36.0-45.0) L 12/24/23 05:55 Plt Count 398 thou/uL (152-406) D 12/24/23 05:55 PT 11.5 SECONDS (9.5-12.5) 12/21/23 07:01 INR 1.05 12/21/23 07:01 APTT 25.7 SECONDS (24.3-36.9) 12/21/23 07:01 Sodium 145 mEq/L (136-145) 12/24/23 05:55 Potassium 3.4 mEq/L (3.5-5.1) L D 12/24/23 05:55 BUN 19 mg/dL (7-18) H 12/24/23 05:55 Creatinine 0.74 mg/dL (0.55-1.02) 12/24/23 05:55 Glucose 116 mg/dL (74-106) H 12/24/23 05:55 Phosphorus 1.9 mg/dL (2.5-4.9) L 12/23/23 06:39 Magnesium 2.0 mg/dL (1.6-2.4) 12/24/23 05:55 Total Bilirubin 0.2 mg/dL (0.2-1.0) 12/24/23 05:55 AST 25 U/L (15-37) 12/24/23 05:55 ALT 23 U/L (13-56) 12/24/23 05:55 Alkaline Phosphatase 72 U/L (45-117) D 12/24/23 05:55 Triglycerides 77 mg/dL (<150) 12/21/23 07:01 Cholesterol 172 mg/dL (<200) 12/21/23 07:01 HDL Cholesterol 68 mg/dL (40-60) H 12/21/23 07:01 Cholesterol/HDL Ratio 2.53 12/21/23 07:01 Lipase 327 U/L (13-75) H 12/24/23 05:55 <Darya Fu - Last Filed: 12/25/23 12:02> Diet: Low sodium Activity: Fall precautions Time spent managing pt's care (in minutes): 55 <Ignacia Luna - Last Filed: 12/24/23 14:18> <Darya Fu - Last Filed: 12/25/23 12:02> Home Medications: Cetirizine HCl [Zyrtec*] 5 mg PO BEDTIME 12/20/23 Esomeprazole Magnesium [Nexium] 20 mg PO DAILY 12/20/23 Quetiapine [Seroquel*] 100 mg PO BEDTIME 12/20/23 Albuterol Neb [Proventil 0.083% Neb Soln] 2.5 mg NEB Q6H #60 amp 12/24/23 Albuterol Sulfate [Albuterol Sulfate 0.083% Neb Soln] 2.5 mg IH Q4H PRN 30 Days #1 box 12/24/23 Budesonide/Formoterol Fumarate [Symbicort 160-4.5 Mcg Inhaler] 1 puff IH BID #1 inh 12/24/23 Hydrocodone 10/APAP 325 [Alexander 10/325] 1 tab PO Q6H PRN #30 tab 12/24/23 Ipratropium [place] 0.2 mg IH Q4H PRN 30 Days #30 ml NS 12/24/23 Ipratropium Neb [Atrovent*] 0.5 mg NEB Q6H #60 amp 12/24/23 Methylprednisolone [Medrol dosepack] 4 mg PO DIRECTED #1 eh 12/24/23 Metoprolol Tartrate [Lopressor] 50 mg PO BID #60 tab 12/24/23 Mometasone/Formoterol [Dulera 200 Mcg-5 Mcg Inhaler] 8.8 gm IH BID 30 Days #1 inh 12/24/23 Nebulizer Accessories [A.i.r.s. Nebulizer] 1 each DAILY #1 kit 12/24/23 Nebulizer Accessories [A.i.r.s. Nebulizer] 1 each Q4H PRN 30 Days #1 kit 12/24/23 Nebulizer [Aeroneb Go Nebulizer] 1 each DAILY #1 ea 12/24/23 Nebulizer and Compressor [[place] Nebulizer] 1 each MC Q4H PRN 30 Days #1 ea 12/24/23 levoFLOXacin [Levaquin] 750 mg PO DAILY #5 tab 12/24/23 levoFLOXacin [Levaquin] 750 mg PO DAILY 5 Days #5 tab 12/24/23 predniSONE [Deltasone] 20 mg PO BID #11 tab 12/24/23 New Medications: Nebulizer Accessories [A.i.r.s. Nebulizer] 1 each MC Q4H PRN 30 Days #1 kit PRN Reason: Shortness Of Breath Nebulizer Accessories [A.i.r.s. Nebulizer] 1 each MC DAILY #1 kit Nebulizer [Aeroneb Go Nebulizer] 1 each MC DAILY #1 ea Albuterol Sulfate [Albuterol Sulfate 0.083% Neb Soln] 2.5 mg IH Q4H PRN 30 Days #1 box PRN Reason: Shortness Of Breath Ipratropium Neb [Atrovent*] 0.5 mg NEB Q6H #60 amp Nebulizer and Compressor [[place] Choice Nebulizer] 1 each MC Q4H PRN 30 Days #1 ea PRN Reason: Shortness Of Breath Mometasone/Formoterol [Dulera 200 Mcg-5 Mcg Inhaler] 8.8 gm IH BID 30 Days #1 inh Ipratropium [place] 0.2 mg IH Q4H PRN 30 Days #30 ml NS PRN Reason: Shortness Of Breath levoFLOXacin [Levaquin] 750 mg PO DAILY 5 Days #5 tab levoFLOXacin [Levaquin] 750 mg PO DAILY #5 tab Metoprolol Tartrate [Lopressor] 50 mg PO BID #60 tab Methylprednisolone [Medrol dosepack] 4 mg PO DIRECTED #1 he Hydrocodone 10/APAP 325 [Alexander 10/325] 1 tab PO Q6H PRN #30 tab PRN Reason: Pain predniSONE [Deltasone] 20 mg PO BID #11 tab Albuterol Neb [Proventil 0.083% Neb Soln] 2.5 mg NEB Q6H #60 amp Budesonide/Formoterol Fumarate [Symbicort 160-4.5 Mcg Inhaler] 1 puff IH BID #1 inh Physician Discharge Instructions: -DC IV and DC home -Follow-up with PCP in 1 to 2 weeks -Follow-up with Cardiology, Pulmonary, Gastroenterology over the course of the next 4 to 6 weeks -Please call Dr. Fu at [phone] if any questions regarding hospital stay -Please call nursing station at [phone] if any nursing or medication questions -Return to the emergency room if symptoms worsen Followup: Ananth Pagan MD [ACTIVE - CAN ADMIT] - Angel Hyde MD [Primary Care Provider] -
== END 2023-12-24 14:11 | disposition home or self-care (01) | DRG 438 ==
LOC: ER 04:00 → ERHOLD 12:15 → 4TH 14:45
PROVIDERS: ADMIT Hospitalist; ATTEND Hospitalist
DX: K85.10 Biliary acute pancreatitis without necrosis or infection (principal); J18.9 Pneumonia, unspecified organism; J96.01 Acute respiratory failure with hypoxia; J44.1 Chronic obstructive pulmonary disease with (acute) exacerbation; J44.0 Chronic obstructive pulmonary disease with (acute) lower respiratory infection; D50.9 Iron deficiency anemia, unspecified; K82.4 Cholesterolosis of gallbladder; J30.9 Allergic rhinitis, unspecified; I10 Essential (primary) hypertension; F17.210 Nicotine dependence, cigarettes, uncomplicated; Z79.899 Other long term (current) drug therapy; Z28.310 Unvaccinated for COVID-19
CPT/HCPCS: 36415; 71045; 74177; 74181; 76705; 80053; 80061; 81001; 83605; 83690; 83735; 84100; 84145; 84484; 85025; 85610; 85730; 87040; 93005; 94640; 96374; 96375; 99284; C9113; J1170; J1630; J1940; J2405; J2543; J2920; J2930; J7030; J7040; J7613; J7644; Q9967

== ENCOUNTER 2024-05-14 18:28 | Inpatient (IN) | payer BC ==
--- OUTSIDE RECORDS SUMMARY | 2024-05-14 18:30 | XMS REPORT | Continuity of Care Document ---
Author Name Unknown Address [address] [place] [address] thconnect Address [address] [place] [address] [address] [place] [address] Care Team Providers Care Wireworker Supervisor Name Role Phone [email or web address] Attending Clinician Unavaila ble [email or web address] Admitting Clinician Unavaila ble Encounters Start Date/Time End Date/Time Encounter Type Admission Type Attending Clinicians Care Facility Care Department Encounter ID Source 2023-07-14 00:00:00 2023-07-14 00:00:00 Outpatient [email or web address] [facility] [id number] [facility]
[2024-05-14 19:16] LABS: Absolute Basophils 0.1 K/uL (0-0.5); Absolute Monocytes 0.5 K/uL (0.1-1.3); Basophils % 0.4 % (0-1.3); Eosinophils % 0.1 % (0-4.4); Hematocrit 30.2 % (36.0-45.0); Hemoglobin 9.6 g/dL (12.0-15.0); MCHC 31.7 g/dL (32.0-36.0); Monocytes % 4.3 % (3.3-12.3); Neutrophils % 87.2 % (41.7-73.7); Nucleated Red Blood Cells % 0.1 % (0-0); Platelets 283 thou/uL (152-406); RBC Red Blood Cell Count 3.82 M/uL (3.86-4.86); Red Cell Distribution Width 16.9 % (12.1-15.2)
--- NOTE | 2024-05-14 19:22 | RAD REPORT ---
EXAM DESCRIPTION: CT - Head Brain Wo Cont - 05/14/2024 7:13 pm CLINICAL HISTORY: Alteration of awareness/confusion COMPARISON: None TECHNIQUE: Computed axial tomography of the head was obtained. IV contrast was not requested. All CT scans are performed using dose optimization technique as appropriate and may include automated exposure control or mA/KV adjustment according to patient size. FINDINGS: An intracranial bleed is not seen The ventricles are normal in caliber No extra-axial fluid collection is noted. Mild low-density areas within periventricular, deep and subcortical white matter likely represent isc hemic changes secondary to small vessel disease. Fluid within the sinuses/ mastoids is not seen. IMPRESSION: No acute intracranial abnormality is seen If patient's symptoms persist MRI of the brain would be recommended
--- NOTE | 2024-05-14 19:36 | RAD REPORT ---
EXAM DESCRIPTION: CT - Thorax Wo Con - 05/14/2024 7:16 pm CLINICAL HISTORY: sob COMPARISON: none TECHNIQUE: Computed axial tomography of the chest was obtained. Contrast was not requested. All CT scans are performed using dose optimization technique as appropriate and may include automated exposure control or mA/KV adjustment according to patient size. FINDINGS: The evaluation of mediastinum, neil and vessels is limited secondary to lack of IV contras t administration. Mild to moderate bilateral patchy diffuse lung opacities. Mild COPD No mediastinal or hilar lymphadenopathy is seen. A pleural effusion is not present. No pericardial effusion. Coronary arterial calcifications Moderate hiatal hernia IMPRESSION: Mild to moderate bilateral patchy alveolar opacities within the lungs may represent pneu monia or pneumonitis
[2024-05-14 19:39] LABS: Albumin 3.2 g/dL (3.4-5.0); Albumin/Globulin Ratio 0.9 (1.1-1.8); Anion Gap 10.2 mEq/L (5.0-15.0); Bilirubin Total 0.3 mg/dL (0.2-1.0); Globulin 3.5 g/dL (2.3-3.5); Potassium 3.2 mEq/L (3.5-5.1); Protein, Total 6.7 g/dL (6.4-8.2)
[2024-05-14] MEDS ORDERED: METHYLPREDNISOLONE 125 MG INJ ONE (19:40)
[2024-05-14 20:02] LABS: Blood Morphology Comment NOT SEEN (NOT SEEN); Platelet Estimate ADEQ; White Blood Cell Scan OK (OK)
--- NOTE | 2024-05-14 20:30 | EDPHYS ---
Physician Documentation [facility] Name: Debra Lowery Age: 64 yrs Sex: Female : 1960 Arrival Date: 05/14/2024 Time: 18:28 Bed 13 Private MD: ED Physician Virgil Moses HPI: 05/14 19:34 This 64 yrs old Female presents to ER via EMS with complaints of Breathing Difficulty. sp3 19:34 64-year-old female with a history of hypertension who was initially called out for sp3 difficulty breathing. Patient also likely has undiagnosed COPD as she is a pack-a-day smoker. EMS found patient having respiratory difficulty and administered albuterol and Atrovent after which the respiratory difficulty improved however her mental status became more disoriented and she had repetitive questioning. She denies any substance use or alcohol. She also denies any other symptoms including fever, trauma, headache, neck pain, chest pain, abdominal pain, vomiting, diarrhea, syncope, near syncope, rash, known sick contacts, prolonged immobilization, or any other signs or symptoms on ROS at this time.. Historical: - Allergies: 18:43 No Known Allergies; mb9 - Home Meds: 18:43 Seroquel 200 mg Oral tablet every day at bedtime [Active]; amlodipine 10 mg tablet mb9 [Active]; levocertrizine 5 mg nightly [Active]; metoprolol tartrate 50 mg Oral tablet [Active]; - PMHx: 18:43 Hypertensive disorder; mb9 - PSHx: 18:43 None; mb9 - Immunization history:: Adult Immunizations up to date. - Infectious Disease History:: Denies. - Social history:: Smoking status: Patient reports the use of cigarette tobacco products, smokes one pack cigarettes per day. ROS: 19:35 Unable to obtain ROS due to altered mental status, sp3 Exam: 19:35 Constitutional: This is a well developed, well nourished patient who is awake, alert, sp3 and in no acute distress. Head/Face: Normocephalic, atraumatic. Eyes: Pupils equal round and reactive to light, extra-ocular motions intact. Lids and lashes normal. Conjunctiva and sclera are non-icteric and not injected. Cornea within normal limits. Periorbital areas with no swelling, redness, or edema. Chest/axilla: Normal chest wall appearance and motion. Nontender with no deformity. No lesions are appreciated. Cardiovascular: Regular rate and rhythm with a normal S1 and S2. No gallops, murmurs, or rubs. Normal PMI, no JVD. No pulse deficits. Abdomen/GI: Soft, non-tender, with normal bowel sounds. No distension or tympany. No guarding or rebound. No evidence of tenderness throughout. Back: No spinal tenderness. No costovertebral tenderness. Full range of motion. Skin: Warm, dry with normal turgor. Normal color with no rashes, no lesions, and no evidence of cellulitis. MS/ Extremity: Pulses equal, no cyanosis. Neurovascular intact. Full, normal range of motion. 19:35 Respiratory: Coarse breath sounds bilaterally with scattered wheeze., 19:35 Neuro: No focal deficits noted however patient is disorientated in terms of place and time and asked repetitive questions. Heart rate initially in the 120s now down to 110., 19:36 ECG was reviewed by the Attending Physician. EKG demonstrates sinus tachycardia at 120 sp3 bpm with normal intervals, normal QRS, normal axis, nonspecific diffuse ST/T changes without evidence of acute ischemia. Vital Signs: 18:45 BP 119 / 81; Pulse 124; Resp 18; Temp 98.9(O); Pulse Ox 95% on R/A; Weight 68.04 kg; mb9 Height 5 ft. 3 in. ; Pain 0/10; 19:30 BP 103 / 70; Pulse 115; Resp 20; Pulse Ox 96% on R/A; pc2 20:15 BP 114 / 99; Pulse 113; Resp 18; Pulse Ox 99% on R/A; pc2 23:00 BP 123 / 67; Pulse 107; Resp 18; Temp 98.9; Pulse Ox 97% on 2 lpm NC; pc2 18:45 Body Mass Index 26.57 (68.04 kg, 160.02 cm) mb9 18:45 Pain Scale: Adult mb9 MDM: 18:49 Patient medically screened. sp3 19:36 Data reviewed: vital signs, nurses notes, lab test result(s), EKG, radiologic studies. sp3 19:36 ED course: 64-year-old female with difficulty breathing and now altered mental status. sp3 Wide differential diagnosis exist including infection, pneumonia, substance use, other intracranial pathology, COPD exacerbation although undiagnosed, another viral syndrome. Will obtain CT scan of the head, CT scan of the chest, laboratory values, EKG and general supportive care. Disposition pending workup and patient course. Patient will be signed out to nighttime physician for final reevaluation and final disposition.. 05/14 18:48 Order name: Blood Culture Adult (2) [facility] 05/14 18:48 Order name: CBC with Diff; Complete Time: 20:21 [facility] 05/14 18:48 Order name: CMP; Complete Time: 19:48 [facility] 05/14 18:48 Order name: Lactate w/ 2H reflex if indic.; Complete Time: 19:48 [facility] 05/14 18:48 Order name: Troponin High Sensitivity; Complete Time: 19:48 [facility] 05/14 18:48 Order name: BNP; Complete Time: 19:48 [facility] 05/14 18:48 Order name: ABG: vbg [facility] 05/14 18:56 Order name: ETOH Level; Complete Time: 19:48 [facility] 05/14 18:56 Order name: UDS; Complete Time: 21:13 3 05/14 19:20 Order name: CBC Smear Scan; Complete Time: 20:21 [facility] 05/14 19:48 Order name: Lipase; Complete Time: 21:13 3 05/14 21:47 Order name: CBC with Automated Diff [facility] 05/14 21:47 Order name: CBC with Automated Diff [facility] 05/14 21:47 Order name: Comprehensive Metabolic Panel [facility] 05/14 21:47 Order name: Comprehensive Metabolic Panel [facility] 05/14 21:47 Order name: Troponin High Sensitivity [facility] 05/14 21:47 Order name: Troponin High Sensitivity [facility] 05/14 18:48 Order name: CT Head Brain wo Cont 3 05/14 18:48 Order name: CT Chest Wo Con 3 05/14 20:13 Order name: CT Chest, Abdomen, Pelvis - W/Contrast vc1 05/14 18:48 Order name: EKG; Complete Time: 18:48 [facility] 05/14 18:48 Order name: Cardiac monitoring; Complete Time: 19:03 3 05/14 18:48 Order name: EKG - Nurse/Tech; Complete Time: 19:03 [facility] 05/14 18:48 Order name: IV Saline Lock - Large Bore; Complete Time: 19:03 sp3 05/14 18:48 Order name: Labs collected and sent; Complete Time: 19:03 sp3 05/14 18:48 Order name: O2 Per Protocol; Complete Time: 19:03 sp3 05/14 18:48 Order name: O2 Sat Monitoring; Complete Time: 19:03 sp3 05/14 18:48 Order name: Vital Signs; Complete Time: 19:04 sp3 Administered Medications: 19:47 Drug: MethylPrednisoLONE IVP 125 mg IVP once Route: IVP; Site: right antecubital; pc2 20:50 Drug: Potassium PO Effervescent Tablet 25 mEq PO once; dissolve in 4 ounces of water or pc2 juice Route: PO; 20:50 Drug: Levalbuterol Inhalation 2.5 mg Inhalation once Route: Inhalation; pc2 20:50 Drug: Ipratropium Inhalation Aerosol 0.5 mg Inhalation once Route: Inhalation; pc2 20:50 Drug: Famotidine IVP 20 mg IVP once; dilute with 10 mL 0.9% NaCl; give over 2 minutes pc2 Route: IVP; Site: right antecubital; 20:51 Drug: NS 0.9% IV 1000 ml IV at 1 bolus Per protocol; 1000 mL bolus Route: IV; Rate: 1 pc2 bolus; Site: right antecubital; 20:51 Drug: NS 0.9% IV 500 ml IV at bolus once Route: IV; Rate: bolus; Site: right pc2 antecubital; 20:51 Drug: Rocephin - Rocephin (cefTRIAXone) IVPB 2 grams IVPB once over 30 mins; (mix in pc2 100 mL NS) Route: IVPB; Infused Over: 30 mins; Site: right antecubital; 20:52 Drug: Zithromax IVPB 500 mg IVPB once over 1 hrs; mix in 250 mL NS Route: IVPB; Infused pc2 Over: 1 hrs; Site: left antecubital; 22:45 Drug: NS 0.9% IV 1000 ml IV at 125 ml/hr continuous Route: IV; Rate: 125 ml/hr; Site: pc2 right antecubital; 23:35 Drug: Magnesium Sulfate IVPB 1 grams IVPB once over 1 hrs Route: IVPB; Infused Over: 1 pc2 hrs; Site: right antecubital; Disposition Summary: 05/14/24 20:30 Hospitalization Ordered Notes: Hospitalization Status: Inpatient Admission hardik Provider: Jerry Martinez cha Location: Telemetry/MedSurg (Inpatient) hardik Condition: Fair hardik Problem: new hardik Symptoms: have improved hardik Bed/Room Type: Standard hardik Room Assignment: 416(05/14/24 22:07) ty Diagnosis - Dyspnea hardik - Tobacco abuse counseling hardik - Tobacco use hardik - Anemia, unspecified hardik - Pneumonia due to other specified bacteria - bilateral hardik - Altered mental status, unspecified hardik - COPD/ Chronic obstructive pulmonary disease with (acute) exacerbation hardik Forms: - Medication Reconciliation Form hardik - SBAR form hardik - Leadership Thank You Letter hardik Signatures: Dispatcher [employer] EDMS Virgil Moses MD MD cha Patel, Setul, MD MD sp3 Brenda Sanchez RN RN mb9 Vlad Tucker Pam, RN RN pc2 Corrections: (The following items were deleted from the chart) 18:49 18:48 BLOOD CULTURE*+BA.LAB.BRZ ordered. EDMS EDMS 18:49 18:48 CBC+H.LAB.BRZ ordered. EDMS EDMS 18:49 18:48 COMPREHENSIVE METABOLIC PANEL+C.LAB.BRZ ordered. EDMS EDMS 18:49 18:48 LACTATE+C.LAB.BRZ ordered. EDMS EDMS 18:49 18:48 Troponin High Sensitivity+C.LAB.BRZ ordered. EDMS EDMS 18:49 18:48 PROBNP+C.LAB.BRZ ordered. EDMS EDMS 18:49 18:49 Head Brain Wo Cont+CT.RAD.BRZ ordered. EDMS EDMS 18:49 18:49 Thorax Wo Con+CT.RAD.BRZ ordered. EDMS EDMS 18:49 18:49 Arterial Blood Gas+RC.LAB.BRZ ordered. EDMS EDMS 22:07 20:30 hardik ty
--- NOTE | 2024-05-14 20:30 | ER ---
Nurse's Notes [facility] Name: Debra Lowery Age: 64 yrs Sex: Female : 1960 Arrival Date: 05/14/2024 Time: 18:28 Bed 13 Private MD: Diagnosis: Dyspnea;Tobacco abuse counseling;Tobacco use;Anemia, unspecified;Pneumonia due to other specified bacteria-bilateral;Altered mental status, unspecified;COPD/ Chronic obstructive pulmonary disease with (acute) exacerbation Presentation: 05/14 18:44 Ebola Screen: No symptoms or risks identified at this time. mb9 18:44 Method Of Arrival: EMS: [facility] mb9 18:45 Chief complaint: EMS states: "toned out of difficulty breathing/ Gave A\\T\\ A treatment mb9 and becoming more altered. BP 86/44, administered 400 cc of NS via 20 g left AC, bgl 100, and HR 120s". Coronavirus screen: Vaccine status: Patient reports receiving the 2nd dose of the covid vaccine. Initial Sepsis Screen: Does the patient meet any 2 criteria? No. Patient's initial sepsis screen is negative. Does the patient have a suspected source of infection? No. Patient's initial sepsis screen is negative. Risk Assessment: Do you want to hurt yourself or someone else? Patient reports no desire to harm self or others. Onset of symptoms. 18:45 Acuity: CESAR 2 mb9 Triage Assessment: 18:50 General: Appears uncomfortable, Behavior is cooperative. Pain: Denies pain. EENT: No mb9 signs and/or symptoms were reported regarding the EENT system. Neuro: Jade Agitation-Sedation Scale (RASS): 0 - Alert and Calm Level of Consciousness is awake, obeys commands, Oriented to place, situation. Cardiovascular: Patient's skin is warm and dry. Rhythm is sinus tachycardia. Respiratory: Reports shortness of breath cough that is Airway is patent Respiratory effort is even, unlabored, Respiratory pattern is regular, symmetrical, Breath sounds with wheezes bilaterally. GI: Abdomen is round non-distended. : No signs and/or symptoms were reported regarding the genitourinary system. Derm: Skin is pink, warm \\T\\ dry. Musculoskeletal: Range of motion: intact in all extremities. Historical: - Allergies: 18:43 No Known Allergies; mb9 - Home Meds: 18:43 Seroquel 200 mg Oral tablet every day at bedtime [Active]; amlodipine 10 mg tablet mb9 [Active]; levocertrizine 5 mg nightly [Active]; metoprolol tartrate 50 mg Oral tablet [Active]; - PMHx: 18:43 Hypertensive disorder; mb9 - PSHx: 18:43 None; mb9 - Immunization history:: Adult Immunizations up to date. - Infectious Disease History:: Denies. - Social history:: Smoking status: Patient reports the use of cigarette tobacco products, smokes one pack cigarettes per day. Screenin:12 [facility] ED Fall Risk Assessment (Adult) History of falling in the last 3 months, pc2 including since admission Yes- single mechanical fall (1 pt) Confusion or Disorientation Yes (5 pts) Intoxicated or Sedated No (0 pts) Impaired Gait No (0 pts) Mobility Assist Device Used No (0 pt) Altered Elimination No (0 pt) Score/Fall Risk Level 3 or more points = High Risk Oriented to surroundings, Maintained a safe environment, Hourly rounding (assess needs \\T\\ fall precautionary measures) done, Utilized family, sitter, or virtual customer agent as indicated. Abuse screen: Denies threats or abuse. Denies injuries from another. Nutritional screening: No deficits noted. Tuberculosis screening: No symptoms or risk factors identified. Assessment: 19:30 Reassessment: Patient and/or family updated on plan of care and expected duration. Pain pc2 level reassessed. Patient is alert, oriented x 3, equal unlabored respirations, skin warm/dry/pink. General: Appears in no apparent distress. uncomfortable, Behavior is cooperative, anxious. Pain: Complains of pain in head. Neuro: Level of Consciousness is awake, alert, obeys commands, Oriented to person, place, time, situation, Appropriate for age Speech is normal, Reports headache. Cardiovascular: Denies chest pain, palpitations, Heart tones S1 S2 Patient's skin is warm and dry. Rhythm is sinus tachycardia. Respiratory: Reports shortness of breath. GI: No signs and/or symptoms were reported involving the gastrointestinal system. : Urine is clear. EENT: No signs and/or symptoms were reported regarding the EENT system. Derm: No signs and/or symptoms reported regarding the dermatologic system. Musculoskeletal: No signs and/or symptoms reported regarding the musculoskeletal system. 22:00 Reassessment: Patient appears in no apparent distress at this time. Patient and/or pc2 family updated on plan of care and expected duration. Pain level reassessed. Patient is alert, oriented x 3, equal unlabored respirations, skin warm/dry/pink. 23:00 Reassessment: Patient appears in no apparent distress at this time. Patient and/or pc2 family updated on plan of care and expected duration. Pain level reassessed. Vital Signs: 18:45 BP 119 / 81; Pulse 124; Resp 18; Temp 98.9(O); Pulse Ox 95% on R/A; Weight 68.04 kg; mb9 Height 5 ft. 3 in. ; Pain 0/10; 19:30 BP 103 / 70; Pulse 115; Resp 20; Pulse Ox 96% on R/A; pc2 20:15 BP 114 / 99; Pulse 113; Resp 18; Pulse Ox 99% on R/A; pc2 23:00 BP 123 / 67; Pulse 107; Resp 18; Temp 98.9; Pulse Ox 97% on 2 lpm NC; pc2 18:45 Body Mass Index 26.57 (68.04 kg, 160.02 cm) mb9 18:45 Pain Scale: Adult mb9 ED Course: 17:02 First set of blood cultures drawn by me. dd2 18:42 Patient arrived in ED. iw 18:43 Michael Redding MD is Attending Physician. sp3 18:44 Arm band placed on. mb9 18:44 Bed in low position. Call light in reach. Side rails up X 1. Provided Education on: mb9 press call light if needing anything. Client placed on continuous cardiac and pulse oximetry monitoring. NIBP monitoring applied. elevator erector on. 18:47 Triage completed. mb9 18:52 Maintain EMS IV. Dressing intact. Good blood return noted. Site clean \\T\\ dry. Gauge \\T\\ mb 9 site: 20 g left AC. Flushed with 10 mL NS. 19:02 EKG done, by ED staff, reviewed by Michael Redding MD. Inserted saline lock: 20 gauge in mb9 right antecubital area, using aseptic technique. Blood collected. Flushed with 10 mL NS. 19:15 CT Head Brain wo Cont In Process Unspecified. EDMS 19:18 CT Chest Wo Con In Process Unspecified. EDMS 19:33 Bessie Villela, RN is Primary Nurse. pc2 20:08 Attending Physician role handed off by Michael Redding MD hardik 20:08 Virgil Moses MD is Attending Physician. hardik 20:13 No provider procedures requiring assistance completed. pc2 20:27 eJrry Martinez MD is Hospitalizing Provider. hardik 21:[address] via stretcher. pc2 21:29 CT Chest, Abdomen, Pelvis - W/Contrast In Process Unspecified. EDMS 05/15 00:31 Patient admitted, IV remains in place. pc2 Administered Medications: 05/14 19:47 Drug: MethylPrednisoLONE IVP 125 mg IVP once Route: IVP; Site: right antecubital; pc2 20:50 Drug: Potassium PO Effervescent Tablet 25 mEq PO once; dissolve in 4 ounces of water or pc2 juice Route: PO; 20:50 Drug: Levalbuterol Inhalation 2.5 mg Inhalation once Route: Inhalation; pc2 20:50 Drug: Ipratropium Inhalation Aerosol 0.5 mg Inhalation once Route: Inhalation; pc2 20:50 Drug: Famotidine IVP 20 mg IVP once; dilute with 10 mL 0.9% NaCl; give over 2 minutes pc2 Route: IVP; Site: right antecubital; 20:51 Drug: NS 0.9% IV 1000 ml IV at 1 bolus Per protocol; 1000 mL bolus Route: IV; Rate: 1 pc2 bolus; Site: right antecubital; 20:51 Drug: NS 0.9% IV 500 ml IV at bolus once Route: IV; Rate: bolus; Site: right pc2 antecubital; 20:51 Drug: Rocephin - Rocephin (cefTRIAXone) IVPB 2 grams IVPB once over 30 mins; (mix in pc2 100 mL NS) Route: IVPB; Infused Over: 30 mins; Site: right antecubital; 20:52 Drug: Zithromax IVPB 500 mg IVPB once over 1 hrs; mix in 250 mL NS Route: IVPB; Infused pc2 Over: 1 hrs; Site: left antecubital; 22:45 Drug: NS 0.9% IV 1000 ml IV at 125 ml/hr continuous Route: IV; Rate: 125 ml/hr; Site: pc2 right antecubital; 23:35 Drug: Magnesium Sulfate IVPB 1 grams IVPB once over 1 hrs Route: IVPB; Infused Over: 1 pc2 hrs; Site: right antecubital; Medication: 18:52 VIS not applicable for this client. mb9 Outcome: 20:30 Decision to Hospitalize by Provider. hardik 05/15 00:30 Admitted to Med/surg accompanied by tech, via wheelchair, room 416, with oxygen, with pc2 chart, Condition: stable Instructed on the need for admit, Demonstrated understanding of instructions, 00:31 Patient left the ED. pc2 Signatures: Dispatcher [employer] EDVirgil Myles MD MD cha Williams, Irene, RN RN iw Michael Redding MD MD sp3 Laura, Brenda Murphy RN RN mb9 Bessie Villela, RN RN pc2 ABHIHSEK POWELL RN RN dd2 Corrections: (The following items were deleted from the chart) 05/14 18:50 18:45 Resp 18bpm; Temp 98.9F Oral; mb9 mb9 18:52 18:45 Pulse 124bpm; Resp 18bpm; Pulse Ox 95% RA; Temp 98.9F Oral; 68.04 kg; Height 5 mb9 ft. 3 in.; BMI: 26.5; Pain 0/10, Adult; mb9
[2024-05-14 20:34] LABS: Barbiturates NEGATIVE (NEGATIVE); Benzodiazepines NEGATIVE (NEGATIVE); Cocaine NEGATIVE (NEGATIVE); METHAMPHETAM NEGATIVE (NEGATIVE); Methadone NEGATIVE (NEGATIVE); Opiates NEGATIVE (NEGATIVE); Phencyclidine NEGATIVE (NEGATIVE); THC Cannibis NEGATIVE (NEGATIVE)
[2024-05-14] MEDS ORDERED: CEFTRIAXONE 2000 MG/VIAL ONE (20:35)
[2024-05-14] MEDS ORDERED: ALBUTEROL 2.5 MG/3 ML NEB SOL ONE (20:35)
[2024-05-14] MEDS ORDERED: IPRATROPIUM BROM 0.5MG/2.5ML ONE (20:35)
[2024-05-14] MEDS ORDERED: FAMOTIDINE 20 MG/2 ML VIAL IV ONE (20:36)
[2024-05-14] MEDS ORDERED: POTASSIUM 25 MEQ EFFERV TAB ONE (20:36)
[2024-05-14] MEDS ORDERED: NA CHLORIDE 0.9% 500 ML ONE (20:36)
[2024-05-14] MEDS ORDERED: AZITHROMYCIN 500 MG INJ IVPB ONE (20:36)
[2024-05-14] MEDS ORDERED: NA CHLORIDE 0.9% 250 ML ONE (20:36)
[2024-05-14] MEDS ORDERED: NA CHLORIDE 0.9% 1,000 ML ONE (20:36)
[2024-05-14] MEDS ORDERED: NA CHLORIDE 0.9% 100 ML ONE (20:37)
--- NOTE | 2024-05-14 21:40 | P.HP ---
Certification for Inpatient With expected LOS: >2 Midnights Patient will require the following post-hospital care: None Practitioner: I am a practitioner with admitting privileges, knowledge of patient current condition, hospital course, and medical plan of care. Services: Services provided to patient in accordance with Admission requirements found in Title 42 Section 412.3 of the Code of Federal Regulations Patient History Date of Service: 05/14/24 Reason for admission: Shortness of breath and lethargy History of Present Illness: 64-year-old female with past medical history of hypertension, chronic insomnia, chronic smoker, COPD with prior exacerbation during hospitalization for pancreatitis 5 months ago; sent home on nebulizer; presented today because of worsening shortness of breath as well as some drowsiness. Patient denies cough, chest pain or dizziness. Spouse at bedside report patient was drowsy had a few falls to the as well as was mildly confused. Confusion reportedly improved after patient received DuoNeb in the emergency room. On arrival in the ED, she was tachycardic with heart rate in the 120s, received DuoNebs as well as IV fluid and heart rate improving to 104 now. Blood pressure was stable. Afebrile. CT of the chest shows mild to moderate bilateral pneumonitis. Head CT was negative. BMP shows serum bicarb of 17 otherwise unremarkable, CBC shows elevated WBC of 12.7 with right shift neutrophilia of 87%. She has been admitted for COPD exacerbation with bilateral pneumonia. Allergies No Known Allergies Allergy (Unverified 12/20/23 08:44) Home Medications: Cetirizine HCl [Zyrtec*] 5 mg PO BEDTIME 12/20/23 Esomeprazole Magnesium [Nexium] 20 mg PO DAILY 12/20/23 Quetiapine [Seroquel*] 100 mg PO BEDTIME 12/20/23 Albuterol Neb [Proventil 0.083% Neb Soln] 2.5 mg NEB Q6H #60 amp 12/24/23 Albuterol Sulfate [Albuterol Sulfate 0.083% Neb Soln] 2.5 mg IH Q4H PRN 30 Days #1 box 12/24/23 Budesonide/Formoterol Fumarate [Symbicort 160-4.5 Mcg Inhaler] 1 puff IH BID #1 inh 12/24/23 Hydrocodone 10/APAP 325 [[place] 10/325] 1 tab PO Q6H PRN #30 tab 12/24/23 Ipratropium [place] 0.2 mg IH Q4H PRN 30 Days #30 ml NS 12/24/23 Ipratropium Neb [Atrovent*] 0.5 mg NEB Q6H #60 amp 12/24/23 Methylprednisolone [Medrol dosepack] 4 mg PO DIRECTED #1 eh 12/24/23 Metoprolol Tartrate [Lopressor] 50 mg PO BID #60 tab 12/24/23 Mometasone/Formoterol [Dulera 200 Mcg-5 Mcg Inhaler] 8.8 gm IH BID 30 Days #1 inh 12/24/23 Nebulizer Accessories [A.i.r.s. Nebulizer] 1 each MC DAILY #1 kit 12/24/23 Nebulizer Accessories [A.i.r.s. Nebulizer] 1 each MC Q4H PRN 30 Days #1 kit 12/24/23 Nebulizer [Aeroneb Go Nebulizer] 1 each MC DAILY #1 ea 12/24/23 Nebulizer and Compressor [[place] Nebulizer] 1 each MC Q4H PRN 30 Days #1 ea 12/24/23 levoFLOXacin [Levaquin] 750 mg PO DAILY #5 tab 12/24/23 levoFLOXacin [Levaquin] 750 mg PO DAILY 5 Days #5 tab 12/24/23 predniSONE [Deltasone] 20 mg PO BID #11 tab 12/24/23 - Past Medical/Surgical History Diabetic: No -: Hypertension -: Insomnia -: Allergic rhinitis -: Prior knee surgery - Family History Brother Notes: Cholangiocarcinoma - Social History Smoking Status: Heavy Tobacco smoker (>10 cigarettes/day) Counseled patient to stop smoking for: more than 10 minutes Smoking therapy provided: No Patient receptive to therapy: No Alcohol use: No CD- Drugs: No Place of Residence: Home Review of Systems General: Weakness Respiratory: Cough, Shortness of Breath, SOB with Excertion Neurological: Weakness Physical Examination - Physical Exam General: Oriented x2, Acute distress HEENT: Atraumatic, Normocephalic, PERRLA Neck: Supple, 2+ carotid pulse no bruit, JVD not distended Respiratory: Expiratory wheezes, Rhonchi/gurgles Cardiovascular: Normal pulses, Regular rate/rhythm, Normal S1 S2 Gastrointestinal: Normal bowel sounds, Soft and benign, Non-distended, No ascites, No tenderness Musculoskeletal: No clubbing, No swelling Integumentary: No breakdown, No significant lesion Neurological: Normal gait, Normal strength at 5/5 x4 extr, Sensation intact, Cranial nerves 3-12 intact - Studies Laboratory Data (last 24 hrs) 05/14/24 05/14/24 05/14/24 19:01 19:01 19:01 WBC 12.60 H Hgb 9.6 L Hct 30.2 L Plt Count 283 Sodium 143 Potassium 3.2 L BUN 22 H Creatinine 0.75 Glucose 95 Total Bilirubin 0.3 AST 25 ALT 30 Alkaline Phosphatase 95 Lipase 16 Assessment and Plan - Problems (Diagnosis) (1) COPD exacerbation Current Visit: No Status: Acute (2) Hypertension Current Visit: No Status: Acute (3) Pneumonia Current Visit: No Status: Acute - Plan Impression Acute COPD exacerbation Chronic smoker Bilateral pneumonia Hypertension Metabolic encephalopathyMay be due to pneumonia Plan We admit patient to [facility] in telemetry since tachycardia Serial set of cardiac enzymes Start empirical antibiotics with cefepime Blood culture x 2 Obtain sputum culture if possible DuoNebs every 6 IV Solu-Medrol 125 every 12 for now Obtain COVID screen Hold Seroquel since drowsiness Follow mental status with improving O2 sat Subcutaneous Lovenox for DVT prophylaxis Full code Total time spent in evaluation greater than 65 minutes. - Advance Directives Does patient have a Living Will: No Does patient have a Durable POA for Healthcare: No Time Spent Managing Pts Care (In Minutes): 65
[2024-05-14] MEDS ORDERED: HYDRALAZINE HCL 20 MG/ML VIAL IV PRN (21:41)
[2024-05-14] MEDS ORDERED: ACETAMINOPHEN 500 MG TAB PO PRN (21:41)
[2024-05-14] MEDS ORDERED: ONDANSETRON 4 MG/2 ML VIAL IV PRN (21:41)
--- NOTE | 2024-05-14 21:47 | RAD REPORT ---
EXAM DESCRIPTION: CT - Chest Abdomen Pelvis W Cont - 05/14/2024 9:27 pm CLINICAL HISTORY: Chest and abdominal pain COMPARISON: CT abdomen December [address] chest May 14 2024 TECHNIQUE: Computed axial tomography of the chest, abdomen and pelvis was obtained. 100 cc Isovue-30 0 was administered intravenously. Oral contrast was not requested. This limits evaluation of bowel. All CT scans are performed using dose optimization technique as appropriate and may include automated exposure control or mA/KV adjustment according to patient size. FINDINGS: Mild to moderate bilateral patchy diffuse lung opacities. Mild COPD No mediastinal or hilar lymphadenopathy is seen. A pleural effusion is not present. No pericardial effusion. Coronary arterial calcifications Moderate hiatal hernia The common hepatic and common bile ducts have diminished size since the prior exam and are upper limi ts normal caliber. 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 Hypertrophy of the caud ate lobe has developed 2.7 centimeter pseudocyst has developed within the pancreatic neck. Pancreas is normal size and densi ty. No stranding within the adjacent fat. Small amount of fluid has developed be between medial and lateral segments of liver. Normal appendix. No evidence of diverticulitis. No adnexal mass. Spleen, adrenals and kidneys unremarkable Spondylosis lumbar spine. Atherosclerotic disease IMPRESSION: Mild to moderate patchy bilateral lung opacities may represent pneumonia or pneumonitis 2.7 centimeter pancreatic pseudocyst. 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
[2024-05-14 22:42] LABS: Blood O2 Saturation 53.8 % (92-98.5)
[2024-05-14 22:43] LABS: Arterial Blood Carboxyhemoglob 0.9 % (0-1.5); Blood Gas Oxyhemoglobin 52.2 % (94-97)
[2024-05-14] MEDS: IPRATROPIUM BROM 0.5MG/2.5ML NEB SCH (23:00)
[2024-05-14] MEDS: ALBUTEROL 2.5 MG/3 ML NEB SOL NEB SCH (23:00)
[2024-05-14 23:19] VITALS: BMI 26.5
[2024-05-14] MEDS ORDERED: MAGNESIUM SULFATE 1 gm IVPB 1 GM/100 ML BAG IV ONE (23:19)
[2024-05-15] MEDS: Ringers Lactate 1,000 ML IV SCH (01:02)
[2024-05-15] MEDS: POTASSIUM 25 MEQ EFFERV TAB PO ONE (01:03)
[2024-05-15] MEDS: METHYLPREDNISOLONE 125 MG INJ IV SCH (01:03)
[2024-05-15] MEDS ORDERED: Magnesium Sulfate 2gm IVPB 2 G/50 ML BAG IV ONE ×2 (02:49→21:41)
[2024-05-15 03:35] LABS: SARS-CoV-2 Antigen CONTROL BLUE LINE VIS/BG OK; SARS-CoV-2 Antigen Rapid Res Negative (Negative)
[2024-05-15] MEDS: Magnesium Sulfate 2gm IVPB 2 G/50 ML BAG IV ONE (03:37)
[2024-05-15] MEDS: GUAIFENESIN/DM 5 ML UCUP PO PRN (05:10)
[2024-05-15 07:00] LABS: Absolute Lymphocytes (CBC) 0.3 K/uL (0.7-4.9); Absolute Monocytes 0.1 K/uL (0.1-1.3); Absolute Neutrophil 10.1 K/uL (1.8-8.0); Basophils % 0.2 % (0-1.3); Hematocrit 29.2 % (36.0-45.0); Hemoglobin 9.5 g/dL (12.0-15.0); Lymphocytes % 3.2 % (15.3-44.8); MCH 25.8 pg (27.0-35.0); MCHC 32.4 g/dL (32.0-36.0); MCV 79.7 fL (80-100); MPV 7.5 fL (7.6-11.3); Monocytes % 0.7 % (3.3-12.3); Neutrophils % 95.9 % (41.7-73.7); Nucleated Red Blood Cells % 0.1 % (0-0); Platelets 295 thou/uL (152-406); RBC Red Blood Cell Count 3.67 M/uL (3.86-4.86)
[2024-05-15 07:13] LABS: Albumin 3.2 g/dL (3.4-5.0); Albumin/Globulin Ratio 0.9 (1.1-1.8); Anion Gap 9.9 mEq/L (5.0-15.0); Bilirubin Total 0.2 mg/dL (0.2-1.0); Globulin 3.7 g/dL (2.3-3.5); Potassium 3.9 mEq/L (3.5-5.1); Protein, Total 6.9 g/dL (6.4-8.2); Troponin High Sensitivity 9.7 pg/mL (<58.9)
[2024-05-15] MEDS: ENOXAPARIN 40 MG/0.4 ML SQ SCH (10:06)
[2024-05-15] MEDS: CEFEPIME 1 GM in NA CHLORIDE 0.9% 100 ML IV SCH (10:06)
[2024-05-15] MEDS: FAMOTIDINE 20 MG TAB PO SCH (10:07)
--- NOTE | 2024-05-15 12:05 | P.PN ---
Subjective Date of Service: 05/15/24 Chief Complaint: Shortness of breath and lethargy Pt is resting comfortably in bed. She is using 3L BNC. Pt reports multiple falls at home. No other issues overnight. Review of Systems General: Unremarkable Eyes: Unremarkable ENT: Unremarkable Respiratory: SOB with Excertion Cardiovascular: Unremarkable Gastrointestinal: Unremarkable Genitourinary: Unremarkable Musculoskeletal: Unremarkable Integumentary: Unremarkable Neurological: Unremarkable Lymphatics: Unremarkable Physical Examination - Vital Signs Temperature: 98.6 F Blood Pressure: 138/70 Pulse: 114 Respirations: 24 Pulse Ox (%): 96 - Physical Exam General: Alert, In no apparent distress, Oriented x3 HEENT: Atraumatic, Normocephalic, PERRLA Neck: Supple, 2+ carotid pulse no bruit, JVD not distended Respiratory: Clear to auscultation bilaterally, Normal air movement Cardiovascular: No edema, Normal pulses, Regular rate/rhythm, Normal S1 S2 Capillary refill: <2 Seconds Gastrointestinal: Normal bowel sounds, Soft and benign, Non-distended Musculoskeletal: No clubbing, No swelling, No contractures Integumentary: No rashes, No breakdown, No significant lesion Neurological: Normal gait, Normal speech, Normal strength at 5/5 x4 extr Lymphatics: No axilla or inguinal lymphadenopathy - Studies Laboratory Data (last 24 hrs) 05/14/24 05/14/24 05/14/24 19:01 19:01 19:01 WBC 12.60 H Hgb 9.6 L Hct 30.2 L Plt Count 283 Sodium 143 Potassium 3.2 L BUN 22 H Creatinine 0.75 Glucose 95 Total Bilirubin 0.3 AST 25 ALT 30 Alkaline Phosphatase 95 Lipase 16 Assessment And Plan - Plan Acute COPD exacerbation: Will continue solumedrol, duoneb, 3L BNC, abx, and mucinex. Consulted Pulm. Chronic smoker: Will continue nocotine patch. Bilateral pneumonia: Will continue cefepime and f/u blood cx. Hypertension: continue home med. Metabolic encephalopathy: Likely due to pneumonia. Will monitor. Multiple falls: Will continue fall precaution. Will check Vitamin D and consult PT. DVT ppx: Lovenox Code: Full code
--- NOTE | 2024-05-15 16:31 | P.CNS ---
Date of Consult: 05/15/24 Reason for Consult: COPD exacerbation possible pneumonia Chief Complaint: Shortness of breath and lethargy History of Present Illness: Patient is 64 years of age with history of hypertension COPD has been sick for the past 2 to 3 days complaining of worsening dyspnea and has had recurrent falls coughing confused and it appeared in the hospital still feels a little dizzy uses her inhaler at home Allergies No Known Allergies Allergy (Unverified 12/20/23 08:44) Home Medications: Cetirizine HCl [Zyrtec*] 5 mg PO BEDTIME 12/20/23 Esomeprazole Magnesium [Nexium] 20 mg PO DAILY 12/20/23 Quetiapine [Seroquel*] 100 mg PO BEDTIME 12/20/23 Albuterol Neb [Proventil 0.083% Neb Soln] 2.5 mg NEB Q6H #60 amp 12/24/23 Albuterol Sulfate [Albuterol Sulfate 0.083% Neb Soln] 2.5 mg IH Q4H PRN 30 Days #1 box 12/24/23 Budesonide/Formoterol Fumarate [Symbicort 160-4.5 Mcg Inhaler] 1 puff IH BID #1 inh 12/24/23 Hydrocodone 10/APAP 325 [[place] 10/325] 1 tab PO Q6H PRN #30 tab 12/24/23 Ipratropium [place] 0.2 mg IH Q4H PRN 30 Days #30 ml NS 12/24/23 Ipratropium Neb [Atrovent*] 0.5 mg NEB Q6H #60 amp 12/24/23 Methylprednisolone [Medrol dosepack] 4 mg PO DIRECTED #1 eh 12/24/23 Metoprolol Tartrate [Lopressor] 50 mg PO BID #60 tab 12/24/23 Mometasone/Formoterol [Dulera 200 Mcg-5 Mcg Inhaler] 8.8 gm IH BID 30 Days #1 inh 12/24/23 Nebulizer Accessories [A.i.r.s. Nebulizer] 1 each MC DAILY #1 kit 12/24/23 Nebulizer Accessories [A.i.r.s. Nebulizer] 1 each MC Q4H PRN 30 Days #1 kit 12/24/23 Nebulizer [Aeroneb Go Nebulizer] 1 each MC DAILY #1 ea 12/24/23 Nebulizer and Compressor [[place] Choice Nebulizer] 1 each MC Q4H PRN 30 Days #1 ea 12/24/23 levoFLOXacin [Levaquin] 750 mg PO DAILY #5 tab 12/24/23 levoFLOXacin [Levaquin] 750 mg PO DAILY 5 Days #5 tab 12/24/23 predniSONE [Deltasone] 20 mg PO BID #11 tab 12/24/23 - Past Medical/Surgical History Diabetic: No -: Hypertension -: Insomnia -: Allergic rhinitis -: Prior knee surgery - Family History Brother Notes: Cholangiocarcinoma - Social History Smoking Status: Current every day smoker Alcohol use: No CD- Drugs: No Place of Residence: Home Review of Systems 10-point ROS is otherwise unremarkable General: Weakness Respiratory: Cough, Shortness of Breath Physical Examination Temp Pulse Resp BP Pulse Ox 97.9 F 112 H 23 H 133/76 94 05/15/24 16:00 05/15/24 16:00 05/15/24 16:00 05/15/24 16:00 05/15/24 16:00 General: Alert, Oriented x3 Respiratory: Expiratory wheezes Cardiovascular: No edema, Regular rate/rhythm, Normal S1 S2 Gastrointestinal: Normal bowel sounds, Soft and benign Laboratory Data (last 24 hrs) 05/14/24 05/14/24 05/14/24 19:01 19:01 19:01 WBC 12.60 H Hgb 9.6 L Hct 30.2 L Plt Count 283 Sodium 143 Potassium 3.2 L BUN 22 H Creatinine 0.75 Glucose 95 Total Bilirubin 0.3 AST 25 ALT 30 Alkaline Phosphatase 95 Lipase 16 - Problems (1) Pneumonia Current Visit: No Status: Acute Plan: Patient is 64 years of age admitted with presumed bilateral pneumonia she has been having cough congestion worsening dyspnea patient has a mild microcytic anemia bilateral patchy infiltrates vital signs stable oxygenation satisfactory blood cultures are pending uses Symbicort at home exchange floor manager to p.o. levofloxacin steroids bronchodilators room air sats possible discharge a.m. Qualifiers: Pneumonia type: due to unspecified organism
[2024-05-15] MEDS: MORPHINE 2 MG/ML SYR IV PRN (17:42)
[2024-05-15] MEDS: ALBUTEROL 2.5 MG/3 ML NEB SOL NEB SCH (20:36)
[2024-05-15] MEDS: IPRATROPIUM BROM 0.5MG/2.5ML NEB SCH (20:36)
[2024-05-15] MEDS: predniSONE 20 MG TAB PO SCH (20:41)
[2024-05-16 09:53] VITALS: O2SAT 93
[2024-05-16] MEDS: levoFLOXacin 250 MG TAB PO SCH (10:06)
[2024-05-16 10:24] VITALS: BP 113/74; TEMP 97.1
--- NOTE | 2024-05-16 12:16 | P.PN ---
Subjective Date of Service: 05/16/24 Chief Complaint: COPD exacerbation Subjective: Improving (Patient is improving doing much better at the bedside) Review of Systems 10-point ROS is otherwise unremarkable Physical Examination - Vital Signs Temperature: 97.1 F Blood Pressure: 113/74 Pulse: 104 Respirations: 16 Pulse Ox (%): 97 - Physical Exam General: Alert, Oriented x3 Respiratory: Clear to auscultation bilaterally Cardiovascular: No edema, Normal pulses Assessment And Plan - Current Problems (Diagnosis) (1) Pneumonia Current Visit: No Status: Acute Plan: Patient is doing much better plan to discharge home on levofloxacin and low-dose prednisone 10 mg twice a day Qualifiers: Pneumonia type: due to unspecified organism (2) COPD exacerbation Current Visit: No Status: Acute Plan: Doing better continue with long-acting bronchodilators with me in 2 weeks
--- NOTE | 2024-05-16 12:56 | EKG ---
Test Date: 2024-05-14 Test Time: 18:59:37 Recruiter Specialist: MB MEASUREMENT RESULTS: Intervals: Rate: 123 OK: 158 QRSD: 74 QT: 306 QTc: 438 [place]: P: 57 OK: 158 QRS: 66 T: 17 INTERPRETIVE STATEMENTS: Sinus tachycardia ST & T wave abnormality, consider anterolateral ischemia Abnormal ECG Compared to ECG 12/21/2023 10:34:06 ST (T wave) deviation now present Possible ischemia now present Electronically Signed On 05-16-24 12:55:09 CDT by Vini Goldman
--- NOTE | 2024-05-16 14:19 | P.DS ---
Admission Date: 05/14/24 Discharge Date: 05/16/24 Disposition: ROUTINE DISCHARGE Discharge Condition: GOOD Reason for Admission: COPD exacerbation Brief History of Present Illness: 64-year-old female with past medical history of hypertension, chronic insomnia, chronic smoker, COPD with prior exacerbation during hospitalization for pancreatitis 5 months ago; sent home on nebulizer; presented today because of worsening shortness of breath as well as some drowsiness. Patient denies cough, chest pain or dizziness. Spouse at bedside report patient was drowsy had a few falls to the as well as was mildly confused. Confusion reportedly improved after patient received DuoNeb in the emergency room. On arrival in the ED, she was tachycardic with heart rate in the 120s, received DuoNebs as well as IV fluid and heart rate improving to 104 now. Blood pressure was stable. Afebrile. CT of the chest shows mild to moderate bilateral pneumonitis. Head CT was negative. BMP shows serum bicarb of 17 otherwise unremarkable, CBC shows elevated WBC of 12.7 with right shift neutrophilia of 87%. She has been admitted for COPD exacerbation with bilateral pneumonia. Hospital Course: Pt is a 64yo with past medical history of hypertension, chronic insomnia, chronic smoker, COPD and pancreatitis who presented with shortness of breath and drowsiness. On admission, CT chest showed mild to moderate bilateral pneumonitis. CT head was unremarkable. We admitted pt for COPD and bilateral pneumonia. We gave solumedrol, duoneb, 3L BNC, cefepime, and mucinex. Pulm evaluated pt and recommended levaquin and prednisone. Her mental status improved and Pulm cleared him for discharge. Pt was in NAD prior to discharge. Vital Signs/Physical Exam: Temp Pulse Resp BP Pulse Ox 97.1 F 104 H 16 113/74 97 05/16/24 12:19 05/16/24 12:19 05/16/24 12:19 05/16/24 12:19 05/16/24 12:19 Laboratory Data at Discharge: WBC 10.60 thou/uL (4.3-10.9) 05/15/24 05:36 Hgb 9.5 g/dL (12.0-15.0) L 05/15/24 05:36 Hct 29.2 % (36.0-45.0) L 05/15/24 05:36 Plt Count 295 thou/uL (152-406) 05/15/24 05:36 Sodium 142 mEq/L (136-145) 05/15/24 05:36 Potassium 3.9 mEq/L (3.5-5.1) D 05/15/24 05:36 BUN 17 mg/dL (7-18) 05/15/24 05:36 Creatinine 0.68 mg/dL (0.55-1.02) 05/15/24 05:36 Glucose 224 mg/dL (74-106) H 05/15/24 05:36 Total Bilirubin 0.2 mg/dL (0.2-1.0) 05/15/24 05:36 AST 20 U/L (15-37) 05/15/24 05:36 ALT 30 U/L (13-56) 05/15/24 05:36 Alkaline Phosphatase 97 U/L (45-117) 05/15/24 05:36 Lipase 16 U/L (13-75) 05/14/24 19:01 Home Medications: Cetirizine HCl [Zyrtec*] 5 mg PO BEDTIME 12/20/23 Esomeprazole Magnesium [Nexium] 20 mg PO DAILY 12/20/23 Quetiapine [Seroquel*] 100 mg PO BEDTIME 12/20/23 Albuterol Neb [Proventil 0.083% Neb Soln] 2.5 mg NEB Q6H #60 amp 12/24/23 Albuterol Sulfate [Albuterol Sulfate 0.083% Neb Soln] 2.5 mg IH Q4H PRN 30 Days #1 box 12/24/23 Budesonide/Formoterol Fumarate [Symbicort 160-4.5 Mcg Inhaler] 1 puff IH BID #1 inh 12/24/23 Hydrocodone 10/APAP 325 [[place] 10/325*] 1 tab PO Q6H PRN #30 tab 12/24/23 Ipratropium [place] 0.2 mg IH Q4H PRN 30 Days #30 ml NS 12/24/23 Ipratropium Neb [Atrovent*] 0.5 mg NEB Q6H #60 amp 12/24/23 Methylprednisolone [Medrol dosepack] 4 mg PO DIRECTED #1 eh 12/24/23 Metoprolol Tartrate [Lopressor*] 50 mg PO BID #60 tab 12/24/23 Mometasone/Formoterol [Dulera 200 Mcg-5 Mcg Inhaler] 8.8 gm IH BID 30 Days #1 inh 12/24/23 Nebulizer Accessories [A.i.r.s. Nebulizer] 1 each MC DAILY #1 kit 12/24/23 Nebulizer Accessories [A.i.r.s. Nebulizer] 1 each MC Q4H PRN 30 Days #1 kit 12/24/23 Nebulizer [Aeroneb Go Nebulizer] 1 each MC DAILY #1 ea 12/24/23 Nebulizer and Compressor [[place] Choice Nebulizer] 1 each MC Q4H PRN 30 Days #1 ea 12/24/23 predniSONE [Prednisone*] 20 mg PO BID #11 tab 12/24/23 levoFLOXacin [Levaquin*] 750 mg PO DAILY 7 Days #7 tab 05/16/24 New Medications: levoFLOXacin [Levaquin*] 750 mg PO DAILY 7 Days #7 tab Physician Discharge Instructions: Continue ad adrián activity as tolerated. Take levaquin and prednisone as prescribed. Follow up with Pulm within 1 week. Followup: Angel Hyde MD [Primary Care Provider] -
[2024-05-17] MEDS ORDERED: levoFLOXacin 750 MG TAB PO SCH (09:00)
== END 2024-05-16 17:20 | disposition home or self-care (01) | DRG 193 ==
LOC: ER 18:28 → ERHOLD 21:44 → 4TH 23:18
PROVIDERS: ADMIT Internal Medicine; ATTEND Hospitalist
DX: J18.9 Pneumonia, unspecified organism (principal); G93.41 Metabolic encephalopathy; J44.1 Chronic obstructive pulmonary disease with (acute) exacerbation; J44.0 Chronic obstructive pulmonary disease with (acute) lower respiratory infection; I10 Essential (primary) hypertension; J30.9 Allergic rhinitis, unspecified; D50.9 Iron deficiency anemia, unspecified; F17.210 Nicotine dependence, cigarettes, uncomplicated; R29.6 Repeated falls; Z71.6 Tobacco abuse counseling; Z91.81 History of falling; Z11.52 Encounter for screening for COVID-19; Z79.52 Long term (current) use of systemic steroids; Z79.899 Other long term (current) drug therapy
CPT/HCPCS: 36415; 70450; 71250; 71260; 74177; 80053; 80307; 82077; 82306; 82805; 83605; 83690; 83880; 84484; 85025; 87040; 87811; 93005; 94640; 99285; J0692; J0696; J1650; J2270; J2919; J3475; J7030; J7040; J7050; J7120; J7512; J7613; J7644; Q9967

== ENCOUNTER 2025-04-14 10:59 | Inpatient (IN) | payer BC ==
--- OUTSIDE RECORDS SUMMARY | 2025-04-14 11:02 | XMS REPORT | Continuity of Care Document ---
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 Name Role Phone Armando Prasad Attending Clinician Unavailable Armando Prasad Admitting Clinician Unavailable Payers Payer Name Policy Type Policy Number Effective Date Expirati on Date Source Allergies, Adverse Reactions, Alerts Allergy Name Allergy Type Status Severity Reaction(s) Onset Date Inactive Date Treating Clinician Comments Source No Known Allergie s DA Active U 2023-09 00:00: 00 [facility] Encounters Start Date/Time End Date/Time Encounter Type Admission Type Attending Clinicians Care Facility Care Department Encounter ID Source 2024-09-04 06:00:00 2024-09-04 06:00:00 Outpatient Armando Senior [facility] [id number] [facility] Results Test Description Test Time Test Comments Results Result Co mments Source BASIC METABOLIC [id number] 07:08:00* Test Item Value Reference Range Interpretation Comme nts SODIUM (test code = NA) 144 mmol/L 136-145 N POTASSIUM (test code = K) 3.5 mmol/L 3.4-5.0 N CHLORIDE (test code = CL) 109 mmol/L 98-107 H CARBON DIOXIDE (test code = CO2) 22 mmol/L 21-32 N ANION GAP (test code = GAP) 13 GAP calc 4-15 N GLUCOSE (test code = GLU) 104 MG/DL 70-110 N BLOOD UREA NITROGEN (test code = BUN) 16 MG/DL 7-18 N GLOMERULAR FILTRATION RATE (test code = GFR) >=60 max estimate estGFR >60 The Glomerular Filtration Rate is a calculated parameterbased on serum Creatinine, patient age and sex. GFR valuesless than 60 mL/min/1.73 square meters are indicative ofChronic Kidney Disease. Values less than 15 mL/min/1.73square meters indicate Kidney failure. The calculation forGFR is based on the CKD-EPI (2020) calculation. This formulais race indifferent and is the recommended formula for GFRby the National Kidney Foundation for Adults.The GFR will not calculate if the sex is unknown or if thepatient's age is <18 years. CREATININE (test code = CREAT) 0.7 MG/DL 0.6-1.0 N CALCIUM (test code = CA) 9.2 MG/DL 8.5-10.1 N CBC W/O [id number] 06:51:00* Test Item Value Reference Range Interpretation Comme nts WHITE BLOOD CELL (test code = WBC) 6.8 K/mm3 3.5-11.0 N RED BLOOD CELL (test code = RBC) 4.34 M/mm3 4.70-6.10 L HEMOGLOBIN (test code = HGB) 10.7 G/DL 10.4-14.9 N HEMATOCRIT (test code = HCT) 35.5 % 31.5-44.1 N MEAN CELL VOLUME (test code = MCV) 81.8 Fl 84.5-98.6 L MEAN CELL HGB (test code = MCH) 24.7 pg 27.0-34.2 L MEAN CELL HGB CONCETRATION ( test code = MCHC) 30.1 G/DL 31.5-34.0 L RED CELL DISTRIBUTION WIDTH (test code = RDW) 17.5 SD 11.5-14.5 H PLATELET COUNT (test code = PLT) 285 K/mm3 150-450 N MEAN PLATELET VOLUME (test c ode = MPV) 8.50 fL 7.0-10.5 N Notes Date/Time Note Provider Source 2024-09-04 09:58:00 [id number] [address] PATIENT NAME: GILSON GOLDEN ADMIT DATE: 09/04/24 ACCOUNT NO: [id number] ROOM NO: AGE: 64 REPORT TYPE: OPERATIVE REPORT SEX: F ADMITTING PHYSICIAN: ATTENDING PHYSICIAN: Armando Prasad MD OPERATION DATE: 09/04/2024 PROCEDURES: 1. EGD with biopsy. 2. Dilation by balloon 15 and 18 mm respectively. 3. Administration of anesthesia by Department of Anesthesia. INDICATIONS: Dysphagia, history of esophageal stenosis. PROCEDURE IN DETAIL: Procedure, possible complication, alternatives including but not limited to possibility of bleeding, perforation tear, infection, sepsis, need for surgery, need for blood transfusion, anesthesia related problem explained to the patient. Informed consent obtained. She was placed in left lateral position. After appropriate level of anesthesia, scope was passed. Esophageal mucosa in the proximal, mid, and distal area appeared to be fine near the EG junction stenosis noted. This was passed with the minimum problem. However, the patient has approximately 2.5-3 cm hiatal hernia. Diffuse gastritis noted with antral predominance. Biopsies done. Duodenal bulb, duodenal angle, duodenal part 2 appeared to be within normal range. Scope was retrieved back and forth. At this time, balloon was placed across and under direct visual guidance dilation performed with a 15 and 18 mm balloon respectively. Having done the above procedure in safe diligent and satisfactory manner, endoscope, rest of the endoscopic accessories were removed. The patient's oropharyngeal area cleaned out in respectful manner. She has been sent in excellent condition to postoperative recovery from there to home. IMPRESSION: 1. Esophageal stenosis. EG junction at 35 cm. 2. Moderate degree of hiatal hernia. 3. Diffuse gastritis. PLAN: 1. Continue proton pump inhibitor. 2. If she still continues to have dysphagia probably hiatal hernia contribution has to be considered and surgical correction has to be considered. COMPLICATIONS: None. The patient tolerated the procedure well. DISPOSITION: As above. PATIENT NAME: GILSNO GOLDEN Dictated By: Armando Prasad MD Date Dictated: 09/04/2024 09:58:00 Date Transcribed: 09/04/2024 10:21:02 GAVIN/MIMA/PIA Receipt ID: [id number] Authenticated by Armando Prasad MD On 09/25/2024 09:12:51 AM at 0912 PATIENT NAME: GILSON GOLDEN [facility] 2024-09-04 09:56:00 [facility] ([facility] Post Anesthesia Evaluation REPORT#:[id number] REPORT STATUS: Signed REPORT INITIALIZATION DATE:09/04/24 TIME:955 PATIENT: GILSON GOLDEN UNIT #: [id number] ROOM/BED: : 62 AGE: 64 SEX: F ATTEND: Armando Prasad MD ADM AUTHOR: Sean Villegas MD REPT SERVICE DT/TIME: 09/04/24 09 * ALL edits or amendments must be made on the electronic/computer document * Post Anesthesia Evaluation Anes. changes from pre-op eval Level of consciousness: no change, patient awake, able to answer questions, participate in this eval. Vital signs: Last Documented: Result Date Time Pulse Ox 99 09/04 938 B/P 127/83 09/04 938 O2 Delivery Room air 09/04 938 Temp 36.1 09/04 938 Pulse 84 09/04 938 Resp 16 09/04 938 O2 Flow Rate 3 09/04 924 Cardiovascular: CV system stable, vital signs stable Respiratory/Airway: respiratory system stable, maintains without support Pain: adequately controlled Hydration: adequate Temp status: normothermic Presence of N/V: no Anesthesia complications: no at 0956 RPT #: [id number] END OF REPORT [facility]
[2025-04-14] MEDS ORDERED: LEVALBUTEROL 1.25 MG/3 ML NEB ONE (11:29)
[2025-04-14] MEDS ORDERED: NA CHLORIDE 0.9% 1,000 ML ONE (11:29)
[2025-04-14 11:33] LABS: Absolute Lymphocytes (CBC) 0.8 K/uL (0.7-4.9); Hematocrit 34.8 % (36.0-45.0); Hemoglobin 11.0 g/dL (12.0-15.0); MCH 26.1 pg (27.0-35.0); MCHC 31.6 g/dL (32.0-36.0); MCV 82.8 fL (80-100); MPV 7.0 fL (7.6-11.3); Nucleated RBC Absolute Count 0.0 (0-0); Nucleated Red Blood Cells % 0.1 % (0-0); RBC Red Blood Cell Count 4.20 M/uL (3.86-4.86); White Blood Count 4.40 thou/uL (4.3-10.9)
[2025-04-14 11:45] LABS: Base Excess, VBG -10.6 mmol/L (-2.0-3.0); HCO3, Venous Blood Gas 15.5 mmol/L (21.0-29.0); O2 Saturation, VBG 99.7 % (40.0-70.0); PCO2, Venous Blood Gas 30 mmHg (41-51); PH, Venous Blood Gas 7.32 (7.32-7.42); PO2, Venous Blood Gas 209 mmHg (25-40)
[2025-04-14 11:52] LABS: PT Prothrombin Time 21.5 SECONDS (10-13.0); PTT, Activated Partial Thromb 34.6 SECONDS (27.2-37.4); Protime INR 1.94
[2025-04-14 11:59] LABS: ALT/SGPT 44 U/L (13-56); AST/SGOT 39 U/L (15-37); Albumin 3.7 g/dL (3.4-5.0); Albumin/Globulin Ratio 1.2 (1.1-1.8); Alkaline Phosphatase 71 U/L (45-117); Anion Gap 6.5 mEq/L (5.0-15.0); BUN Blood Urea Nitrogen 26 mg/dL (7-18); Globulin 3.0 g/dL (2.3-3.5); Glucose Level 98 mg/dL (74-106); Magnesium 2.2 mg/dL (1.6-2.4); Potassium 3.5 mEq/L (3.5-5.1); Troponin High Sensitivity 12.3 pg/mL (<58.9)
[2025-04-14 12:06] LABS: Bilirubin Indirect, Calculated 0.8 mg/dL (0.2-0.8)
--- NOTE | 2025-04-14 12:49 | RAD REPORT ---
EXAMINATION: ONE VIEW CHEST XR CLINICAL INDICATION: Female, 65 years old.,cough sob TECHNIQUE: Frontal chest projection is submitted. Examination is limited by patient positioning and t echnique. COMPARISON: 04/13/2025 FINDINGS: The lungs show right basilar medial patchy opacification, although suboptimal inspiratory effort some what limits evaluation. No pneumothorax or sizable effusion. The heart is normal in size. Mediastinal contours are unremarkable. IMPRESSION: Medial right basilar airspace opacification, could reflect atelectasis versus early airspace disease.
[2025-04-14 12:57] LABS: Anisocytosis 3+; Blood Morphology Comment NOTED (NOT SEEN); Microcytosis 2+; Polychromasia SLIGHT; White Blood Cell Scan OK (OK)
--- NOTE | 2025-04-14 13:08 | RAD REPORT ---
EXAMINATION: Head Brain Wo Cont CLINICAL INDICATION: Female, 65 years old.generalized weakness, AMS, slurred speech TECHNIQUE: Axial CT images from the skull base to the vertex without intravenous contrast. Coronal an d sagittal reformatted images were created from the data set. One or more of the following dose reduction techniques were used: Automated exposure control, adjustment of the mA and/or kV according to patient size, and/or iterative reconstruction. Unless otherwise specified, incidental findings do not require dedicated imaging follow-up. [id number]. COMPARISON: No prior exams FINDINGS: INTRACRANIAL: No acute intracranial hemorrhage. No acute large vascular territory infarct. No hydroce phalus. No mass effect or midline shift. Mild chronic small vessel ischemic changes. VASCULATURE: No visualized abnormalities in the arteries or dural venous sinuses. SCALP/SKULL: No calvarial fracture identified. No acute soft tissue abnormality. SINUSES: Trace paranasal sinus thickening. No significant mastoid fluid. IMPRESSION: No acute intracranial abnormality.
--- NOTE | 2025-04-14 13:26 | RAD REPORT ---
EXAMINATION: Abdomen Pelvis W Contrast CLINICAL INDICATION: Female, 65 years old.abdominal pain TECHNIQUE: CT abdomen and pelvis was performed, after the administration of IV contrast, as per [facility] protocol. Axial, sagittal and coronal reconstructions were obtained. One or more of the following dose reduction techniques were used: Automated exposure control, adjustment of the mA and/o r kV according to patient size, and/or iterative reconstruction. Unless otherwise specified, incidental findings do not require dedicated imaging follow-up. [id number]. COMPARISON: 12/20/23 FINDINGS: LOWER CHEST: No acute process identified.No significant pericardial effusion. Mild coronary artery ca lcifications.Moderate hiatal hernia. UPPER GI: No significant abnormality. LIVER: Cirrhotic liver morphology. No focal masses. GALLBLADDER/BILE DUCTS: No biliary ductal dilatation.? PANCREAS: Atrophy but no acute findings. SPLEEN: Unremarkable. ADRENALS: No adrenal masses. KIDNEYS AND URETERS: No hydronephrosis.No suspicious renal mass. ABDOMINAL AORTA AND OTHER VESSELS: Severe atherosclerotic changes. No aortic aneurysm. PERITONEUM: No abnormal free fluid. No free air. LYMPH NODES: No pathologic lymphadenopathy. ABDOMINAL WALL: Unremarkable SMALL BOWEL/COLON: Wall thickening present at the splenic flexure and descending colon.Normal appendi x. URINARY BLADDER: Underdistended but grossly unremarkable. REPRODUCTIVE ORGANS: No pathologic process. MUSCULOSKELETAL: Severe left hip degenerative changes. Degenerative changes are present in the lower spine. ADDITIONAL FINDINGS: None. IMPRESSION: Possible mild colitis at the splenic flexure and descending colon. Incidental findings as noted above.
--- NOTE | 2025-04-14 13:29 | RAD REPORT ---
EXAMINATION: Femur Left VIEWS: Four views CLINICAL INDICATION: Female, 65 years old. PAIN COMPARISON: No prior exam. IMPRESSION: No acute fracture of the left femur. Severe left hip degenerative changes with joint space loss, subchondral sclerosis and cystic changes along the superior aspect of the left acetabulum. No dislocation.
[2025-04-14] MEDS ORDERED: CEFTRIAXONE 1000 MG/VIAL ONE (13:51)
[2025-04-14] MEDS ORDERED: AZITHROMYCIN 500 MG INJ IVPB ONE (13:51)
[2025-04-14] MEDS ORDERED: NA CHLORIDE 0.9% 250 ML ONE (13:52)
--- NOTE | 2025-04-14 14:11 | RAD REPORT ---
EXAMINATION: Brain Wo Cont CLINICAL INDICATION: Female, 65 years old. AMS, weakness, slurred speech TECHNIQUE: Multiplanar multisequence MR images of the brain were obtained without intravenous contras t. Unless otherwise specified, incidental findings do not require dedicated imaging follow-up. [id number]. COMPARISON: Same-day FINDINGS: INTRACRANIAL: No acute infarct identified. No significant mass effect or midline shift.No hydrocepha tristin. Mild chronic small vessel ischemic changes.Mild cerebral atrophy. VASCULATURE: Normal signal voids in the larger intracranial arteries and dural venous sinuses. SINUSES: The paranasal sinuses are predominantly clear.No mastoid effusions. BONE: The marrow signal pattern is within normal limits. IMPRESSION: No acute intracranial abnormality. Specifically, no evidence of acute infarct.
--- NOTE | 2025-04-14 14:17 | ER ---
Nurse's Notes [facility] Name: Debra Lowery Age: 65 yrs Sex: Female : 1960 Arrival Date: 04/14/2025 Time: 10:59 Bed 4 Private MD: Diagnosis: Altered mental status, unspecified;Delirium due to known physiological condition;Left sided colitis;Pneumonia, unspecified organism Presentation: 04/14 11:04 Chief complaint: EMS states: SENT FROM PCP FOR INTERMITTENT LEFT SIDED WEAKNESS, bp SLURRED SPEECH AND CONFUSION. S/S FLUCTUANT WHILE OBSERVED. Coronavirus screen: At this time, the client does not indicate any symptoms associated with coronavirus-19. Ebola Screen: No symptoms or risks identified at this time. No acute neurological deficit is noted. The patients blood glucose was checked before arriving to the hospital and was found to be normal. Initial Sepsis Screen: Does the patient meet any 2 criteria? Altered Mental Status. No. Patient's initial sepsis screen is negative. Does the patient have a suspected source of infection? No. Patient's initial sepsis screen is negative. Risk Assessment: Do you want to hurt yourself or someone else? Patient reports no desire to harm self or others. Onset of symptoms was April 14, 2025 at 04:30. Care prior to arrival: IV initiated. 20 GA, in the right forearm, Glucose check: 99. 11:04 Method Of Arrival: EMS: [facility] bp 11:04 Acuity: CESAR 2 bp Triage Assessment: 11:06 The onset of the patients symptoms was April 14, 2025 at 04:30. General: Appears in no bp apparent distress. obese, Behavior is cooperative, appropriate for age, anxious. Pain: Denies pain. EENT: No deficits noted. Neuro: Reports weakness LEFT SIDED. Cardiovascular: Rhythm is sinus rhythm. Respiratory: No deficits noted. GI: No signs and/or symptoms were reported involving the gastrointestinal system. : No signs and/or symptoms were reported regarding the genitourinary system. Derm: No deficits noted. Musculoskeletal: No deficits noted. Stroke Activation: Symptom onset > 6 hours Physician: ED Attending; Name: ; Notified At: ; Arrived At: Physician: Mid-Level Provider; Name: ; Notified At: ; Arrived At: Physician: [not used]; Name: ; Notified At: ; Arrived At: Physician: [not used]; Name: ; Notified At: ; Arrived At: Physician: [not used]; Name: ; Notified At: ; Arrived At: Historical: - Allergies: 11: No Known Allergies; bp - PMHx: 11: Cholelithiasis; Hypertensive disorder; Pancreatitis; Tachycardia; Vertigo; bp - Immunization history:: Adult Immunizations up to date. - Infectious Disease History:: Denies. - Social history:: Smoking status: Patient denies any tobacco usage or history of. - Family history:: not pertinent. - Hospitalizations: : No recent hospitalization is reported. Screenin:07 [facility] ED Fall Risk Assessment (Adult) History of falling in the last 3 months, bp including since admission Yes- physiologic fall (2 pts) Confusion or Disorientation Yes (5 pts) Intoxicated or Sedated Yes (3 pts) Impaired Gait No (0 pts) Mobility Assist Device Used No (0 pt) Altered Elimination No (0 pt) Score/Fall Risk Level 3 or more points = High Risk Oriented to surroundings, Maintained a safe environment. Abuse screen: Denies threats or abuse. Denies injuries from another. Nutritional screening: No deficits noted. Tuberculosis screening: No symptoms or risk factors identified. Assessment: 11:07 VAN Scoring: Arm Drift: Patients demonstrates NO arm weakness. Patient is VAN Negative. bp Visual Disturbance: No visual disturbance noted. Aphasia: Expressive aphasia noted. Provider notified of +VAN scoring. Neglect: No neglect noted. Alexander Swallow Protocol Exclusion Criteria: Unable to remain alert for testing: No NPO for medical/surgical reason by provider order No Tracheostomy tube present No No thin liquids due to preexisting dysphagia/baseline modified diet thickened liquids No Exclusion Criteria Result: Proceed Brief Cognitive Screen What is your name? Normal, Where are you right now? Normal, What year is it? Normal. Oral Mechanism Examination Facial Symmetry: Normal, Motion: Normal, Lip Closure: Normal, Oral Mechanism Result: Normal. 3 oz Water Swallow Challenge: Pt able to drink all water without stopping, coughing, choking or throat clearing: Yes Result: LESVIA ROSA Notified: Sunil Guy MD. TNKase (Tenecteplase) Screening: Contraindications: Rapidly improving condition or minor deficit: Yes. 14:08 Reassessment: PT RETURNED FROM MRI. bp Vital Signs: 11:04 BP 107 / 60; Pulse 68; Resp 16; Temp 98; Pulse Ox 99% ; bp 14:14 BP 103 / 81; Pulse 74; Resp 16; Pulse Ox 95% ; bp 16:00 BP 93 / 57; Pulse 71; Resp 15; Pulse Ox 92% ; bp 17:00 BP 99 / 60; Pulse 75; Resp 14; Pulse Ox 94% ; bp NIH Stroke Scale Scores: 11:07 NIHSS Score: 3 bp ED Course: 11:03 Patient arrived in ED. bp 11:04 Sunil Guy MD is Attending Physician. rn 11:06 Triage completed. bp 11:06 Arm band placed on. bp 11:07 Patient has correct armband on for positive identification. bp 11:07 Maintain EMS IV. Dressing intact. Good blood return noted. Site clean \T\ dry. Gauge \T\ bp site: 20 RFA. 11:10 Juan Carlos Mason, RN is Primary Nurse. bp 12:25 Chest Single View XRAY In Process Unspecified. EDMS 12:58 CT Head Brain wo Cont In Process Unspecified. EDMS 12:58 CT Abd/Pelvis - IV Contrast Only In Process Unspecified. EDMS 13:23 XRAY Femur LEFT In Process Unspecified. EDMS 13:51 Brain Wo Cont MRI In Process Unspecified. EDMS 14:15 Juan Pablo Roberson is Hospitalizing Provider. rn 15:56 No provider procedures requiring assistance completed. Patient admitted, IV remains in hb place. 17:27 Provided Education on: NA. bp Administered Medications: 11:20 Drug: NS 0.9% IV 1000 ml IV at 1000 ml once; to be given as a bolus over 60 minutes bp Route: IV; Rate: 1000 ml; Site: right forearm; 17:27 Follow up: IV Status: Completed infusion bp 11:20 Drug: Levalbuterol Inhalation 1.25 mg Inhalation once Route: Inhalation; bp 14:13 Drug: Rocephin IV 1 grams IV at calculated rate once; Given slow IV push per pharmacy bp instructions Route: IV; Rate: calculated rate; Site: right forearm; 17:27 Follow up: IV Status: Completed infusion bp 14:13 Drug: Zithromax IVPB 500 mg IVPB once over 1 hrs; mix in 250 mL NS Route: IVPB; Infused bp Over: 1 hrs; Site: right forearm; 17:27 Follow up: IV Status: Completed infusion bp 15:44 Drug: Ativan IVP 0.5 mg IVP once Route: IVP; Site: right forearm; bp 17:27 Follow up: Response: No adverse reaction bp Medication: 11:07 VIS not applicable for this client. bp Point of Care Testing: Blood Glucose: 11:06 Blood Glucose: 99 mg/dL; bp Ranges: Outcome: 14:16 Decision to Hospitalize by Provider. rn 15:56 Admitted to ER Hold. Please see [facility] for further documentation. hb 15:56 Condition: stable 15:56 Instructed on the need for admit, Demonstrated understanding of instructions, 17:28 Patient left the ED. bp NIH Stroke Scale - NIH Stroke Score Date: 04/14/2025 Time: 11:07 Total Score = 3 10. Dysarthria (speech clarity - read or repeat words) - 1(Mild to Moderate) 11. Extinction and Inattention (visual/tactile/auditory/spatial/personal) - 0(No abnormality) 1a. Level of Consciousness (LOC) - 0(Alert) 1b. Level of Consciousness (LOC) (Month \T\ Age) - 0(Both) 1c. LOC Commands (Open \T\ Closes Eyes/Ground Services Instructor) - 0(Both) 2. Best Gaze (Lateral Gaze Paresis) - 0(Normal) 3. Visual Field Loss - 0(No visual loss) 4. Facial Palsy - 0(Normal) 5a. Left Arm: Motor (10-second hold) - 0(No drift) 5b. Right Arm: Motor (10-second hold) - 0(No drift) 6a. Left Leg: Motor (5-second hold - always test supine) - 0(No drift) 6b. Right Leg: Motor (5-second hold - always test supine) - 0(No drift) 7. Limb Ataxia (finger/nose \T\ heel/kiser - test with eyes open) - 0(Absent) 8. Sensory Loss (pinprick arms/legs/face) - 1(Mild to moderate loss) 9. Best Language: Aphasia (description/naming/reading) - 1(Mild to moderate aphasia) Initials: bp Signatures: Dispatcher [employer] EDMS Sunil Guy MD MD rn Baxter, Heather, RN RN Juan Carlos Mason RN RN bp
--- NOTE | 2025-04-14 14:17 | EDPHYS ---
Physician Documentation [facility] Name: Debra Lowery Age: 65 yrs Sex: Female : 1960 Arrival Date: 04/14/2025 Time: 10:59 Bed 4 Private MD: ED Physician Sunil Guy HPI: 04/14 11:18 This 65 yrs old Female presents to ER via EMS with complaints of Weakness. rn 11:18 Patient brought in by EMS for intermittent confusion, altered mental status, rn generalized weakness and slurred speech for 2 days now. Seen in ED yesterday with negative workup. Family states symptoms worsened this morning. EMS reports nonfocal exam but reports was sitting and leaning towards the left side and had difficulty standing due to generalized weakness. Intermittent slurred speech and patient confused. EMS reports a few falls recently due to weakness the patient denies any focal pain other than left mid thigh. Patient denies focal head injury. Patient reports mild abdominal pain.. Historical: - Allergies: 11:06 No Known Allergies; bp - PMHx: 11:06 Cholelithiasis; Hypertensive disorder; Pancreatitis; Tachycardia; Vertigo; bp - Immunization history:: Adult Immunizations up to date. - Infectious Disease History:: Denies. - Social history:: Smoking status: Patient denies any tobacco usage or history of. - Family history:: not pertinent. - Hospitalizations: : No recent hospitalization is reported. ROS: 11:18 Constitutional: Negative for fever, chills, and weight loss, Eyes: Negative for injury, rn pain, redness, and discharge, Neck: Negative for injury, pain, and swelling, Cardiovascular: Negative for chest pain, palpitations, and edema, Respiratory: Positive for cough and shortness of breath Abdomen/GI: Positive for abdominal pain, negative for vomiting or diarrhea Back: Negative for injury and pain, MS/Extremity: Negative for injury and deformity, Skin: Negative for injury, rash, and discoloration, Neuro: Positive for generalized weakness and altered mental status Exam: 11:18 Constitutional: This is a well developed, well nourished patient who is disheveled, rn awake, alert, and in no acute distress. Head/Face: Normocephalic, atraumatic. ENT: Dry mucous membranes Cardiovascular: Regular rate and rhythm. No pulse deficits. Respiratory: Mild tachypnea, wheezing noted bilaterally, no retractions Abdomen/GI: Soft, mild left-sided abdominal tenderness without rebound or guarding MS/ Extremity: Pulses equal, no cyanosis. Neurovascular intact. Painful range of motion left lower extremity, points to mid thigh. Neuro: Awake and alert, GCS 15, oriented to person, place, not time. Motor strength 4 out of 5 bilateral upper extremities with no drift, bilateral lower extremities 3+ out of 5. Sensory grossly intact. 14:19 ECG was reviewed by the Attending Physician. rn Vital Signs: 11:04 BP 107 / 60; Pulse 68; Resp 16; Temp 98; Pulse Ox 99% ; bp 14:14 BP 103 / 81; Pulse 74; Resp 16; Pulse Ox 95% ; bp 16:00 BP 93 / 57; Pulse 71; Resp 15; Pulse Ox 92% ; bp 17:00 BP 99 / 60; Pulse 75; Resp 14; Pulse Ox 94% ; bp NIH Stroke Scale Scores: 11:07 NIHSS Score: 3 bp MDM: 11:04 Medical Screening Exam initiated rn 14:15 Data reviewed: vital signs, nurses notes, lab test result(s), EKG, radiologic studies, rn CT scan, plain films, and as a result, I will admit patient. Consideration of Admission/Observation Patient was admitted/placed on observation. Escalation of care including admission/observation considered. Counseling: I had a detailed discussion with the patient and/or guardian regarding the historical points, exam findings, and any diagnostic results supporting the discharge/admit diagnosis, lab results, radiology results, the need for further work-up and treatment in the hospital. Response to treatment: There is no appreciated change of the patient's symptoms at this time, and as a result, I will admit patient. 15:39 ED course: Patient becoming agitated, trying to get out of bed and is a fall risk. rn Spoke with family and will give mild sedation.. 04/14 11:12 Order name: Basic Metabolic Panel; Complete Time: 12:10 rn 04/14 11:12 Order name: CBC with Diff; Complete Time: 13:20 rn 04/14 11:12 Order name: Hepatic Function; Complete Time: 12:10 rn 04/14 11:12 Order name: Magnesium; Complete Time: 12:10 rn 04/14 11:12 Order name: Protime (+inr); Complete Time: 12:10 rn 04/14 11:12 Order name: Ptt, Activated; Complete Time: 12:10 rn 04/14 11:12 Order name: Troponin High Sensitivity; Complete Time: 12:10 rn 04/14 11:12 Order name: UDS; Complete Time: 15:20 rn 04/14 11:12 Order name: UA Rfx [place] Cult if indicated; Complete Time: 15:20 rn 04/14 11:12 Order name: VBG; Complete Time: 12:10 rn 04/14 11:15 Order name: ETOH Level; Complete Time: 12:10 bp 04/14 12:29 Order name: Lipase; Complete Time: 12:49 EDMS 04/14 12:57 Order name: CBC Smear Scan; Complete Time: 13:20 EDMS 04/14 11:12 Order name: CT Head Brain wo Cont; Complete Time: 13:20 rn 04/14 11:12 Order name: Chest Single View XRAY; Complete Time: 12:49 rn 04/14 11:14 Order name: CT Abd/Pelvis - IV Contrast Only; Complete Time: 14:06 rn 04/14 11:23 Order name: Brain Wo Cont MRI; Complete Time: 14:12 rn 04/14 12:14 Order name: XRAY Femur LEFT; Complete Time: 14:06 rn 04/14 11:12 Order name: Cardiac monitoring; Complete Time: 11: rn 04/14 11:12 Order name: EKG - Nurse/Tech; Complete Time: 11: rn 04/14 11:12 Order name: IV Saline Lock; Complete Time: 11: rn 04/14 11:12 Order name: Labs collected and sent; Complete Time: 11: rn 04/14 11:12 Order name: NPO; Complete Time: 11: rn 04/14 11:12 Order name: O2 Per Protocol; Complete Time: : rn 04/14 11:12 Order name: O2 Sat Monitoring; Complete Time: 11:14 rn EC:19 Rate is 72 beats/min. Rhythm is regular. QRS [place] is Normal. [place] interval is normal. QRS rn interval is normal. QT interval is normal. No Q waves. T waves are Normal. No ST changes noted. Clinical impression: Normal ECG. Interpreted by me. Reviewed by me. Administered Medications: 11:20 Drug: NS 0.9% IV 1000 ml IV at 1000 ml once; to be given as a bolus over 60 minutes bp Route: IV; Rate: 1000 ml; Site: right forearm; 17:27 Follow up: IV Status: Completed infusion bp 11:20 Drug: Levalbuterol Inhalation 1.25 mg Inhalation once Route: Inhalation; bp 14:13 Drug: Rocephin IV 1 grams IV at calculated rate once; Given slow IV push per pharmacy bp instructions Route: IV; Rate: calculated rate; Site: right forearm; 17:27 Follow up: IV Status: Completed infusion bp 14:13 Drug: Zithromax IVPB 500 mg IVPB once over 1 hrs; mix in 250 mL NS Route: IVPB; Infused bp Over: 1 hrs; Site: right forearm; 17:27 Follow up: IV Status: Completed infusion bp 15:44 Drug: Ativan IVP 0.5 mg IVP once Route: IVP; Site: right forearm; bp 17:27 Follow up: Response: No adverse reaction bp Point of Care Testing: Blood Glucose: 11:06 Blood Glucose: 99 mg/dL; bp Ranges: Critical Glucose Levels:Adult <50 mg/dl or >400 mg/dl <40 mg/dl or >180 mg/dl Disposition Summary: 04/14/25 14:16 Hospitalization Ordered Notes: Hospitalization Status: Inpatient Admission rn Provider: Juan Pablo Roberson rn Condition: Stable rn Problem: new rn Symptoms: are unchanged rn Bed/Room Type: Standard rn Location: Telemetry/MedSurg (Inpatient)(04/14/25 16:08) [facility] Room Assignment: [facility] [place](04/14/25 16:08) [facility] Diagnosis - Altered mental status, unspecified rn - Delirium due to known physiological condition rn - Left sided colitis rn - Pneumonia, unspecified organism rn Forms: - Medication Reconciliation Form rn - SBAR form rn - Leadership Thank You Letter rn NIH Stroke Scale - NIH Stroke Score Date: 04/14/2025 Time: 11:07 Total Score = 3 10. Dysarthria (speech clarity - read or repeat words) - 1(Mild to Moderate) 11. Extinction and Inattention (visual/tactile/auditory/spatial/personal) - 0(No abnormality) 1a. Level of Consciousness (LOC) - 0(Alert) 1b. Level of Consciousness (LOC) (Month \T\ Age) - 0(Both) 1c. LOC Commands (Open \T\ Closes Eyes/Smoke Room Operator) - 0(Both) 2. Best Gaze (Lateral Gaze Paresis) - 0(Normal) 3. Visual Field Loss - 0(No visual loss) 4. Facial Palsy - 0(Normal) 5a. Left Arm: Motor (10-second hold) - 0(No drift) 5b. Right Arm: Motor (10-second hold) - 0(No drift) 6a. Left Leg: Motor (5-second hold - always test supine) - 0(No drift) 6b. Right Leg: Motor (5-second hold - always test supine) - 0(No drift) 7. Limb Ataxia (finger/nose \T\ heel/kiser - test with eyes open) - 0(Absent) 8. Sensory Loss (pinprick arms/legs/face) - 1(Mild to moderate loss) 9. Best Language: Aphasia (description/naming/reading) - 1(Mild to moderate aphasia) Initials: bp Signatures: Dispatcher [employer] EDMS Sunil Guy MD MD rn Baxter, Heather, RN RN hb Peltier, Brian, RN RN bp Patel, Setul, MD MD sp3 Maddie Swann bc6 Corrections: (The following items were deleted from the chart) 11:13 11:12 BASIC METABOLIC PANEL+C.LAB.BRZ ordered. EDMS EDMS 11:13 11:12 CBC+H.LAB.BRZ ordered. EDMS EDMS 11:13 11:12 HEPATIC FUNCTION+C.LAB.BRZ ordered. EDMS EDMS 11:13 11:12 MAGNESIUM+C.LAB.BRZ ordered. EDMS EDMS 11:13 11:12 PROTIME (+INR)+COAG.LAB.BRZ ordered. EDMS EDMS 11:13 11:12 PTT, ACTIVATED+COAG.LAB.BRZ ordered. EDMS EDMS 11:13 11:12 Troponin High Sensitivity+C.LAB.BRZ ordered. EDMS EDMS 11:13 11:12 URINE DRUG SCREEN+UC.LAB.BRZ ordered. EDMS EDMS 11:13 11:12 UA Rfx Tyler Cult if indicated+U.LAB.BRZ ordered. EDMS EDMS 11:13 11:13 Head Brain Wo Cont+CT.RAD.BRZ ordered. EDMS EDMS 11:13 11:13 Chest Single View+RAD.RAD.BRZ ordered. EDMS EDMS 11: 11:13 Venous Blood Gas+RC.LAB.BRZ ordered. EDMS EDMS 11:15 11:15 Abdomen Pelvis W Con+CT.RAD.BRZ ordered. EDMS EDMS 12:15 12:15 Femur Left+RAD.RAD.BRZ ordered. EDMS EDMS 15:57 14:16 Telemetry/MedSurg (Inpatient) rn hb 15:57 14:16 rn hb 16:08 15:57 [facility] ER HOLD hb bc6 16:08 15:57 ERHOLD- hb bc6
[2025-04-14 15:10] LABS: METHAMPHETAM NEGATIVE (NEGATIVE); THC Cannibis NEGATIVE (NEGATIVE)
[2025-04-14 15:13] LABS: Sqamous Epithelial <5 /HPF (None Seen); Urine Culture Reflex Order NOT NEEDED; Urine Microscopic Reflex YN ORDER UMIC; Urine Yeast (Budding) Trace /HPF (None Seen)
[2025-04-14] MEDS ORDERED: ONDANSETRON 4 MG/2 ML VIAL IV PRN (15:30)
[2025-04-14] MEDS ORDERED: ALBUTEROL 2.5 MG/3 ML NEB SOL NEB PRN (15:30)
[2025-04-14] MEDS ORDERED: LORazepam 2 MG/ML VIAL ONE (15:39)
--- NOTE | 2025-04-14 15:51 | P.HP ---
Certification for Inpatient Patient admitted to: Inpatient With expected LOS: >2 Midnights Patient will require the following post-hospital care: None Practitioner: I am a practitioner with admitting privileges, knowledge of patient current condition, hospital course, and medical plan of care. Services: Services provided to patient in accordance with Admission requirements found in Title 42 Section 412.3 of the Code of Federal Regulations Patient History Date of Service: 04/14/25 Reason for admission: AMS History of Present Illness: 65-year-old female with history of pancreatitis, hypertension, vertigo presents to the emergency department with chief complaint of confusion. Family reports that she was becoming confused on Monday the and was seen by her PCP who started her on Macrobid for possible urinary tract infection. Her symptoms have progressed in nature since then is becoming increasingly confused/appears encephalopathic. She was seen in the ER on 04/13 and had a relatively benign workup including a CT of the head that was negative, she was ambulatory and discharged home at that time. She returns today with worsening confusion/delirium. Patient was reevaluated in the ED labs were significant for a sodium of 139 bicarb of 17 chloride 119 creatinine 1.09 GFR 57, INR 1.94 MRI of the brain was negative for acute findings, chest x-ray showed medial right basilar airspace opacification which could reflect atelectasis versus early airspace disease, CT of the abdomen and pelvis was also performed which showed possible mild colitis at the splenic flexure and descending colon as well as mentioning cirrhotic liver morphology. Patient is currently able to answer questions appropriately, oriented x 3 but appears encephalopathic with rapid speech/pressured speech, illogical thought processes, impulsiveness. Patient be admitted for delirium/encephalopathy, colitis and suspected early pneumonia Allergies No Known Allergies Allergy (Unverified 12/20/23 08:44) Home Medications: Cetirizine HCl [Zyrtec*] 5 mg PO BEDTIME 12/20/23 Esomeprazole Magnesium [Nexium] 20 mg PO DAILY 12/20/23 Quetiapine [Seroquel*] 100 mg PO BEDTIME 12/20/23 Albuterol Neb [Proventil 0.083% Neb Soln] 2.5 mg NEB Q6H #60 amp 12/24/23 Albuterol Sulfate [Albuterol Sulfate 0.083% Neb Soln] 2.5 mg IH Q4H PRN 30 Days #1 box 12/24/23 Budesonide/Formoterol Fumarate [Symbicort 160-4.5 Mcg Inhaler] 1 puff IH BID #1 inh 12/24/23 Hydrocodone 10/APAP 325 [[place] 10/325*] 1 tab PO Q6H PRN #30 tab 12/24/23 Ipratropium [place] 0.2 mg IH Q4H PRN 30 Days #30 ml NS 12/24/23 Ipratropium Neb [Atrovent*] 0.5 mg NEB Q6H #60 amp 12/24/23 Methylprednisolone [Medrol dosepack] 4 mg PO DIRECTED #1 eh 12/24/23 Metoprolol Tartrate [Lopressor*] 50 mg PO BID #60 tab 12/24/23 Mometasone/Formoterol [Dulera 200 Mcg-5 Mcg Inhaler] 8.8 gm IH BID 30 Days #1 inh 12/24/23 Nebulizer Accessories [A.i.r.s. Nebulizer] 1 each MC DAILY #1 kit 12/24/23 Nebulizer Accessories [A.i.r.s. Nebulizer] 1 each MC Q4H PRN 30 Days #1 kit 12/24/23 Nebulizer [Aeroneb Go Nebulizer] 1 each MC DAILY #1 ea 12/24/23 Nebulizer and Compressor [[place] Choice Nebulizer] 1 each MC Q4H PRN 30 Days #1 ea 12/24/23 predniSONE [Prednisone*] 20 mg PO BID #11 tab 12/24/23 levoFLOXacin [Levaquin*] 750 mg PO DAILY 7 Days #7 tab 05/16/24 - Past Medical/Surgical History Diabetic: No -: Hypertension -: Insomnia -: Allergic rhinitis -: Pancreatitis -: Prior knee surgery Psychosocial/ Personal History: Lives at home with her - Family History Brother Notes: Cholangiocarcinoma - Social History Alcohol use: No CD- Drugs: No Place of Residence: Home Review of Systems 10-point ROS is otherwise unremarkable Neurological: Confusion, As per HPI Physical Examination - Physical Exam General: Alert, In no apparent distress, Oriented x3, Confused, Delirious HEENT: Atraumatic, PERRLA, Mucous membr. moist/pink, EOMI Neck: Supple, 2+ carotid pulse no bruit, No LAD Respiratory: Clear to auscultation bilaterally, Normal air movement Cardiovascular: Regular rate/rhythm, Normal S1 S2 Gastrointestinal: Normal bowel sounds Musculoskeletal: No tenderness Integumentary: No rashes Neurological: Normal speech, Normal strength at 5/5 x4 extr - Studies Laboratory Data (last 24 hrs) 04/14/25 04/14/25 04/14/25 11:25 11:25 11:25 WBC 4.40 Hgb 11.0 L Hct 34.8 L Plt Count 198 PT 21.5 H INR 1.94 APTT 34.6 Sodium Potassium BUN Creatinine Glucose Magnesium Total Bilirubin AST ALT Alkaline Phosphatase Lipase 49 04/14/25 11:25 WBC Hgb Hct Plt Count PT INR APTT Sodium 139 Potassium 3.5 D BUN 26 H Creatinine 1.09 H Glucose 98 Magnesium 2.2 Total Bilirubin 1.0 AST 39 H ALT 44 Alkaline Phosphatase 71 Lipase Assessment and Plan - Plan Assessment: Colitis Right basilar community-acquired pneumonia Delirium/encephalopathy likely related to above Cirrhotic liver morphology on CT with elevated INR Hypertension History of pancreatitis History of iron deficiency anemia Plan: Colitis Right basilar community-acquired pneumonia Delirium/encephalopathy likely related to above Cirrhotic liver morphology on CT with elevated INR Continue empiric antibioticsZosyn Urine culture sent off-was recently on Macrobid CT noted cirrhotic liver morphology, INR elevated at 1.94-will obtain ammonia level as well PT consultation IV fluids overnight Fall precautions Also noted that patient takes chlorzoxazone and Seroquel which may be contributing to her mental status-will hold these medications for now Additional labs ordered for morning Hypertension History of pancreatitis History of iron deficiency anemia Continue home medications when verified DVT PPX: Lovenox Code status: Full code Discharge Plan: Home Plan to discharge in: 72 Hours - Advance Directives Does patient have a Living Will: No Does patient have a Durable POA for Healthcare: No - Code Status/Comfort Care Code Status Assessed: Yes (Full code) Critical Care: No Time Spent Managing Pts Care (In Minutes): 68
[2025-04-14] MEDS: NA CHLORIDE 0.9% 1,000 ML IV SCH (16:00)
[2025-04-14] MEDS: PIPER TAZO 3.375 GM in NA CHLORIDE 0.9% 100 ML IV SCH (17:00)
[2025-04-14 21:00] VITALS: O2SAT 97
[2025-04-15 06:06] LABS: Absolute Lymphocytes (CBC) 0.9 K/uL (0.7-4.9); Hematocrit 32.4 % (36.0-45.0); Hemoglobin 10.4 g/dL (12.0-15.0); MCH 26.7 pg (27.0-35.0); MCHC 32.0 g/dL (32.0-36.0); MCV 83.3 fL (80-100); MPV 7.0 fL (7.6-11.3); Nucleated RBC Absolute Count 0.0 (0-0); Nucleated Red Blood Cells % 0.1 % (0-0); RBC Red Blood Cell Count 3.89 M/uL (3.86-4.86); White Blood Count 3.00 thou/uL (4.3-10.9)
[2025-04-15 06:12] LABS: PT Prothrombin Time 18.2 SECONDS (10-13.0); Protime INR 1.63
[2025-04-15 07:03] LABS: ALT/SGPT 38.0 U/L (13-56); AST/SGOT 33.0 U/L (15-37); Albumin 3.1 g/dL (3.4-5.0); Albumin/Globulin Ratio 1.1 (1.1-1.8); Alkaline Phosphatase 57.0 U/L (45-117); Anion Gap 8.2 mEq/L (5.0-15.0); BUN Blood Urea Nitrogen 16.0 mg/dL (7-18); Globulin 2.8 g/dL (2.3-3.5); Glucose Level 87.0 mg/dL (74-106); Iron 113.0 ug/dL (50-170); Potassium 3.2 mEq/L (3.5-5.1); Thyroid Stimulating Hormone 2.51 uIU/mL (0.358-3.740); Transferrin 235.0 mg/dL (200-360)
[2025-04-15] MEDS: KCL 20 MEQ/100 mL IVPB 20 MEQ/100 ML BAG IV SCH (08:31)
[2025-04-15] MEDS: D5W 1,000 ML IV SCH (08:32)
[2025-04-15] MEDS: ENOXAPARIN 40 MG/0.4 ML SQ SCH (08:32)
[2025-04-15] MEDS: THIAMINE HCL 100 MG TABLET PO SCH (08:32)
--- NOTE | 2025-04-15 14:51 | P.PN ---
Date of Service: 04/15/25 Subjective: Still with confusion/delirium No other acute events overnight ROS: 10 point ROS as noted above, otherwise negative Physical exam GEN: Alert, confused/delirious oriented x 1-2, NAD HEENT: Normal conjunctiva, sclera anicteric CV: Regular rate and rhythm, no edema Pulm: Nonlabored respirations on room air ABD: Soft, nontender, nondistended MSK: No joint tenderness Integumentary: No rashes Neuro: Normal speech, normal affect Vitals reviewed Assessment: Colitis Right basilar community-acquired pneumonia Delirium/encephalopathy likely related to above Cirrhotic liver morphology on CT with elevated INR Hypertension History of pancreatitis History of iron deficiency anemia Plan: Colitis Right basilar community-acquired pneumonia Delirium/encephalopathy likely related to above Cirrhotic liver morphology on CT with elevated INR Continue empiric antibioticsZosyn Urine culture sent off-was recently on Macrobid CT noted cirrhotic liver morphology, INR moderately elevated Ammonia level within normal limits PT consultation Fall precautions Also noted that patient takes chlorzoxazone and Seroquel which may be contributing to her mental status-will hold these medications for now B12 level normal Unclear if altered mentation is related to infectious process versus medications/psychiatric issue If mental status not significantly improving we will consult neurology for further recommendations/evaluation Hypertension History of pancreatitis History of iron deficiency anemia Continue home medications when verified DVT PPX: Lovenox Code status: Full code Discharge Plan: Home Plan to discharge in: 72 Hours Time Spent Managing Pts Care (In Minutes): 35
[2025-04-15 15:10] LABS: Anion Gap 5.7 mEq/L (5.0-15.0); BUN Blood Urea Nitrogen 13.0 mg/dL (7-18); Glucose Level 100.0 mg/dL (74-106); Potassium 3.7 mEq/L (3.5-5.1)
[2025-04-15] MEDS: MELATONIN 5 MG TABLET PO PRN (20:43)
[2025-04-15] MEDS: ACETAMINOPHEN 325 MG TABLET PO PRN (20:53)
[2025-04-16 04:39] LABS: Absolute Lymphocytes (CBC) 0.8 K/uL (0.7-4.9); Hematocrit 31.0 % (36.0-45.0); Hemoglobin 10.1 g/dL (12.0-15.0); MCH 27.1 pg (27.0-35.0); MCHC 32.6 g/dL (32.0-36.0); MCV 83.0 fL (80-100); MPV 6.6 fL (7.6-11.3); Nucleated RBC Absolute Count 0.0 (0-0); Nucleated Red Blood Cells % 0.3 % (0-0); RBC Red Blood Cell Count 3.73 M/uL (3.86-4.86)
[2025-04-16 04:49] LABS: White Blood Count 2.20 thou/uL (4.3-10.9)
[2025-04-16 05:01] LABS: ALT/SGPT 34.0 U/L (13-56); AST/SGOT 24.0 U/L (15-37); Albumin 3.1 g/dL (3.4-5.0); Albumin/Globulin Ratio 1.2 (1.1-1.8); Alkaline Phosphatase 57.0 U/L (45-117); Anion Gap 5.4 mEq/L (5.0-15.0); BUN Blood Urea Nitrogen 8.0 mg/dL (7-18); C-Reactive Protein 3.1 mg/L (<3.00); Globulin 2.6 g/dL (2.3-3.5); Glucose Level 85.0 mg/dL (74-106); Potassium 3.4 mEq/L (3.5-5.1)
[2025-04-16 05:05] LABS: PT Prothrombin Time 13.2 SECONDS (10-13.0); Protime INR 1.17
[2025-04-16] MEDS: POTASSIUM CL SA 10 MEQ TAB PO ONE (09:09)
--- NOTE | 2025-04-16 15:15 | P.PN ---
Date of Service: 04/16/25 Subjective: Mental status improving No acute events overnight ROS: 10 point ROS as noted above, otherwise negative Physical exam GEN: Alert,oriented x 3, NAD HEENT: Normal conjunctiva, sclera anicteric CV: Regular rate and rhythm, no edema Pulm: Nonlabored respirations on room air ABD: Soft, nontender, nondistended MSK: No joint tenderness Integumentary: No rashes Neuro: Normal speech, normal affect Vitals reviewed Assessment: Colitis Right basilar community-acquired pneumonia Delirium/encephalopathy likely related to above Cirrhotic liver morphology on CT with elevated INR Hypertension History of pancreatitis History of iron deficiency anemia Plan: Colitis Right basilar community-acquired pneumonia Delirium/encephalopathy likely related to above Cirrhotic liver morphology on CT with elevated INR Continue empiric antibioticsZosyn Urine culture sent off-was recently on Macrobid CT noted cirrhotic liver morphology, INR moderately elevated Ammonia level within normal limits PT consultation Fall precautions Also noted that patient takes chlorzoxazone and Seroquel which may be contributing to her mental status-will hold these medications for now B12 level normal Unclear if altered mentation is related to infectious process versus medications/psychiatric issue Neurology following, mental status improved and near baseline Hypertension History of pancreatitis History of iron deficiency anemia Continue home medications when verified DVT PPX: Lovenox Code status: Full code Discharge Plan: Home Plan to discharge in: 72 Hours Time Spent Managing Pts Care (In Minutes): 35
[2025-04-17 07:41] LABS: Absolute Lymphocytes (CBC) 0.9 K/uL (0.7-4.9); Hematocrit 33.3 % (36.0-45.0); Hemoglobin 10.6 g/dL (12.0-15.0); MCH 26.6 pg (27.0-35.0); MCHC 31.9 g/dL (32.0-36.0); MCV 83.6 fL (80-100); MPV 6.9 fL (7.6-11.3); Nucleated RBC Absolute Count 0.0 (0-0); Nucleated Red Blood Cells % 0.1 % (0-0); RBC Red Blood Cell Count 3.98 M/uL (3.86-4.86); White Blood Count 2.50 thou/uL (4.3-10.9)
[2025-04-17 08:04] LABS: ALT/SGPT 31.0 U/L (13-56); AST/SGOT 20.0 U/L (15-37); Albumin 3.3 g/dL (3.4-5.0); Albumin/Globulin Ratio 1.2 (1.1-1.8); Alkaline Phosphatase 58.0 U/L (45-117); Anion Gap 6.7 mEq/L (5.0-15.0); BUN Blood Urea Nitrogen 6.0 mg/dL (7-18); Globulin 2.8 g/dL (2.3-3.5); Glucose Level 107.0 mg/dL (74-106); Potassium 3.7 mEq/L (3.5-5.1)
[2025-04-17] MEDS: POTASSIUM CL SA 10 MEQ TAB PO ONE (11:17)
[2025-04-17 12:04] LABS: Anisocytosis 1+; Blood Morphology Comment NOTED (NOT SEEN); White Blood Cell Scan OK (OK)
--- NOTE | 2025-04-17 15:08 | P.PN ---
Date of Service: 04/17/25 Subjective: Mental status improving No acute events overnight Working well with physical therapy ROS: 10 point ROS as noted above, otherwise negative Physical exam GEN: Alert,oriented x 3, NAD HEENT: Normal conjunctiva, sclera anicteric CV: Regular rate and rhythm, no edema Pulm: Nonlabored respirations on room air ABD: Soft, nontender, nondistended MSK: No joint tenderness Integumentary: No rashes Neuro: Normal speech, normal affect Vitals reviewed Assessment: Colitis Right basilar community-acquired pneumonia Delirium/encephalopathy likely related to above Cirrhotic liver morphology on CT with elevated INR Hypertension History of pancreatitis History of iron deficiency anemia Plan: Colitis Right basilar community-acquired pneumonia Delirium/encephalopathy likely related to above Cirrhotic liver morphology on CT with elevated INR Urine culture sent off-grew Klebsiella sensitive to Zosyncontinue for now CT noted cirrhotic liver morphology, INR moderately elevated Ammonia level within normal limits PT consultation-improving, near baseline Fall precautions Also noted that patient takes chlorzoxazone and Seroquel which may be contributing to her mental status-will hold these medications for now B12 level normal Neurology following, mental status improved and near baseline Hypertension History of pancreatitis History of iron deficiency anemia Continue home medications when verified DVT PPX: Lovenox Code status: Full code Discharge Plan: Home Plan to discharge in: 72 Hours Time Spent Managing Pts Care (In Minutes): 35
[2025-04-17 17:11] VITALS: BMI 28.1
--- NOTE | 2025-04-17 22:57 | CON ---
Reason For Consultation: Consultation called because of altered mental status. History Of Present Illness: Ms. Lowery is a 65-year-old patient with a history of hypertension, pa ncreatitis, reported vertigo who has had at least 3 similar episodes of sudden disorientation, confus ion, which appears seizure-like per the patient's . She is unable to follow instructions and has no memory of the episodes. The events occurred during infections including pancreatitis, chest i nfections, and the most recent events occurred at the end of this month. Today is , she came to hospital on 04/14/2025. She had worsening confusion, delirium in the hospital. Sodium, bicarb, crea tinine, and GFR were not essentially worsened, were within normal limits. She had a CT scan of the a bdomen and pelvis showed mild colitis and was planning . She had a cirrhotic type liver mo rphology. Her CT scan of her head and brain MRI showed no acute ischemic or hemorrhagic findings. T he study was remarkable for mild chronic small vessel ischemic disease and mild cerebral atrophy. Ot herwise, her white blood cell count is unremarkable. Hemoglobin and hematocrit are fairly stable. A rterial blood gas show pH of 7.35 and pCO2 was low at 30, pO2 of 209 on 04/14. Liver function studie s are unremarkable. Urinalysis shows 75 esterase, trace budding yeast, 1+ ketones with specific grav ity greater than 1.03. Cultures did grow Klebsiella oxytoca. She did have a femur x-ray on 04/14. This study showed no fracture of the left femur. No dislocation. There are severe left hip degenera tive changes and joint space narrowing. Subchondral sclerosis and cystic changes along the superior aspect of the left acetabulum seen. Since hospitalization, the patient's and patient noted n o additional episodes of confusion, disorientation in the last several minutes. The patient has not had an EEG. Discussion was made with the patient and her and the events are more consistent with seizure-like activity, very stereotyped, and appeared to not leave any focal neurologic deficits . Past Medical History: As noted above. Allergic rhinitis along with pancreatitis, hypertension, inso mnia. Allergies: NO KNOWN DRUG ALLERGIES. Medications: Levofloxacin, prednisone, nebulizer treatment, metoprolol, ipratropium, [place], Zyrtec. She is on Nexium, Seroquel. Social History: Lives at home with . No alcohol, tobacco, or IV drug use. Family History: Brother has cholangiocarcinoma. Review of Systems: As noted, multiple episodes of confusion, disorientation. Otherwise, no fevers, chills, nausea, vomi ting, myalgias, arthralgias, rash. Physical Examination: Vital Signs: Blood pressure 125/78, pulse 71, respiratory rate 18, temperature 97.6, oxygen saturati on 96%. Weight 159, height 5 feet 3 inches, BMI 28.2. General: Ms. Lowery is resting comfortably in bed. She is in no acute distress. HEENT: She appears normocephalic, atraumatic. Sclerae anicteric. Oropharynx is pink and moist. Neck: Supple. Chest: Clear. Heart: Regular. Extremities: Show no significant cyanosis, clubbing, or edema. Neurologic: She has no focal cranial nerve, motor, sensory, coordination, or gait deficits. Assessment And Plan: Ms. 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 She does have apparently urinary tract infections, being treated for that by primary care physician and received Zosyn as antibiotics. She is on thiamine. She has Lovenox, melatonin, albuterol, Tylen ol for pain. In terms of plan, she did continue with what is recommended as Keppra 250 mg twice kevin y for seizure prophylaxis and treatment. She will be discharged home once completed with her IV anti biotics. She should maintain a seizure diary and follow up in Dr. Francisco's clinic for a potential 3-day ambulatory video EEG long-term study. The patient can call the office next week for an appointment. GLORIA/KAMI Voice ID: [id number] Report ID: [id number]
[2025-04-18 05:07] LABS: Absolute Lymphocytes (CBC) 1.0 K/uL (0.7-4.9); Hematocrit 32.9 % (36.0-45.0); Hemoglobin 10.8 g/dL (12.0-15.0); MCH 27.4 pg (27.0-35.0); MCHC 33.0 g/dL (32.0-36.0); MCV 83.1 fL (80-100); MPV 6.7 fL (7.6-11.3); Nucleated RBC Absolute Count 0.0 (0-0); Nucleated Red Blood Cells % 0.2 % (0-0); RBC Red Blood Cell Count 3.96 M/uL (3.86-4.86)
[2025-04-18 05:10] LABS: White Blood Count 2.60 thou/uL (4.3-10.9)
[2025-04-18 05:20] LABS: ALT/SGPT 28.0 U/L (13-56); AST/SGOT 19.0 U/L (15-37); Albumin 2.9 g/dL (3.4-5.0); Albumin/Globulin Ratio 1.1 (1.1-1.8); Alkaline Phosphatase 54.0 U/L (45-117); Anion Gap 5.6 mEq/L (5.0-15.0); BUN Blood Urea Nitrogen 4.0 mg/dL (7-18); Globulin 2.6 g/dL (2.3-3.5); Glucose Level 96.0 mg/dL (74-106); Potassium 3.6 mEq/L (3.5-5.1)
[2025-04-18] MEDS: levETIRAcetam 500 MG TAB PO SCH (08:18)
[2025-04-18] MEDS: POTASSIUM CL SA 10 MEQ TAB PO ONE (08:19)
[2025-04-18 09:04] VITALS: BP 171/92; TEMP 98.2
--- NOTE | 2025-04-18 09:55 | P.DS ---
Admission Date: 04/14/25 Discharge Date: 04/18/25 Disposition: ROUTINE DISCHARGE Discharge Condition: GOOD Reason for Admission: AMS Brief History of Present Illness: 65-year-old female with history of pancreatitis, hypertension, vertigo presents to the emergency department with chief complaint of confusion. Family reports that she was becoming confused on Monday the and was seen by her PCP who started her on Macrobid for possible urinary tract infection. Her symptoms have progressed in nature since then is becoming increasingly confused/appears encephalopathic. She was seen in the ER on 04/13 and had a relatively benign workup including a CT of the head that was negative, she was ambulatory and discharged home at that time. She returns today with worsening confusion/delirium. Patient was reevaluated in the ED labs were significant for a sodium of 139 bicarb of 17 chloride 119 creatinine 1.09 GFR 57, INR 1.94 MRI of the brain was negative for acute findings, chest x-ray showed medial right basilar airspace opacification which could reflect atelectasis versus early airspace disease, CT of the abdomen and pelvis was also performed which showed possible mild colitis at the splenic flexure and descending colon as well as mentioning cirrhotic liver morphology. Patient is currently able to answer questions appropriately, oriented x 3 but appears encephalopathic with rapid speech/pressured speech, illogical thought processes, impulsiveness. Patient be admitted for delirium/encephalopathy, colitis and suspected early pneumonia Hospital Course: Assessment: Colitis Right basilar community-acquired pneumonia Delirium/encephalopathy likely related to above Cirrhotic liver morphology on CT with elevated INR Hypertension History of pancreatitis History of iron deficiency anemia Patient was initially admitted to the hospital for altered mental status, UTI, possible pneumonia/colitis. On admission her labs were significant for a white blood cell count of 4.4 hemoglobin 11 normal renal function, normal LFTs, bicarb of 17. CT abdomen pelvis was performed which showed possible mild colitis at the splenic flexure and descending colon but also identified cirrhotic liver morphology. MRI of the brain was obtained given patient's persistent altered mentation which was negative for any acute findings. Patient was admitted to the hospital and started on empiric antibiotics with Zosyn, eventually urine culture returned showing Klebsiella which was sensitive to Bactrim, Cipro, levofloxacin, Zosyn. She is completed 4 days of IV Zosyn at this time, she will be transition to levofloxacin at discharge. She has an appointment scheduled with her primary care doctor in 3 days. Additionally she was seen by Dr. 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 He recommends starting Keppra 250 mg twice daily for seizure prophylaxis and treatment and she will follow-up in his clinic to arrange for a 3-day ambulatory video EEG. Follow-up with Dr. Francisco to 2 weeks. Continue other home medications as previously prescribed, keep a close eye on the use of her muscle relaxer chlorzoxazone and the Seroquel. Please also discuss CT findings of cirrhotic liver morphology with PCP. LFTs are within normal limits, ammonia level was normal, INR was initially elevated at 1.94 but is down to 1.17 at this time. Vital Signs/Physical Exam: Temp Pulse Resp BP Pulse Ox 98.2 F 84 18 171/92 H 93 04/18/25 08:00 04/18/25 08:00 04/18/25 08:00 04/18/25 08:00 04/18/25 08:00 General: Alert, In no apparent distress, Oriented x3 HEENT: Atraumatic, PERRLA Neck: Supple, JVD not distended Respiratory: Clear to auscultation bilaterally, Normal air movement Cardiovascular: Regular rate/rhythm, Normal S1 S2 Gastrointestinal: Normal bowel sounds, No tenderness Musculoskeletal: No tenderness Integumentary: No rashes Neurological: Normal speech, Normal affect Laboratory Data at Discharge: WBC 2.60 thou/uL (4.3-10.9) L 04/18/25 04:37 Hgb 10.8 g/dL (12.0-15.0) L 04/18/25 04:37 Hct 32.9 % (36.0-45.0) L 04/18/25 04:37 Plt Count 199 thou/uL (152-406) 04/18/25 04:37 PT 13.2 SECONDS (10-13.0) H 04/16/25 04:16 INR 1.17 04/16/25 04:16 APTT 34.6 SECONDS (27.2-37.4) 04/14/25 11:25 Sodium 144 mEq/L (136-145) 04/18/25 04:37 Potassium 3.6 mEq/L (3.5-5.1) 04/18/25 04:37 BUN 4 mg/dL (7-18) L 04/18/25 04:37 Creatinine 0.43 mg/dL (0.55-1.02) L 04/18/25 04:37 Glucose 96 mg/dL (74-106) 04/18/25 04:37 Phosphorus 2.4 mg/dL (2.5-4.9) L 04/18/25 04:37 Magnesium 2.2 mg/dL (1.6-2.4) 04/14/25 11:25 Total Bilirubin 0.2 mg/dL (0.2-1.0) 04/18/25 04:37 AST 19 U/L (15-37) 04/18/25 04:37 ALT 28 U/L (13-56) 04/18/25 04:37 Alkaline Phosphatase 54 U/L (45-117) 04/18/25 04:37 Lipase 49 U/L (13-75) 04/14/25 11:25 Home Medications: Albuterol Sulfate [Proair Hfa] 2 puff IH Q4H PRN 04/14/25 Amlodipine [Norvasc*] 10 mg PO DAILY 04/14/25 Dicyclomine [Bentyl*] 20 mg PO Q12H PRN 04/14/25 Esomeprazole Magnesium 40 mg PO DAILY 04/14/25 Ferrous Sulfate [Iron] 325 mg PO DAILY 04/14/25 Levocetirizine Dihydrochloride [Xyzal] 5 mg PO BEDTIME 04/14/25 Metoprolol Tartrate [Lopressor*] 50 mg PO DAILY 04/14/25 Ondansetron [Zofran (Odt)*] 4 mg PO Q8H PRN 04/14/25 Levetiracetam [Keppra] 250 mg PO BID #60 tab 04/18/25 levoFLOXacin [Levofloxacin] 500 mg PO DAILY 5 Days #5 tab 04/18/25 New Medications: Levetiracetam [Keppra] 250 mg PO BID #60 tab levoFLOXacin [Levofloxacin] 500 mg PO DAILY 5 Days #5 tab Physician Discharge Instructions: Patient was initially admitted to the hospital for altered mental status, UTI, possible pneumonia/colitis. On admission her labs were significant for a white blood cell count of 4.4 hemoglobin 11 normal renal function, normal LFTs, bicarb of 17. CT abdomen pelvis was performed which showed possible mild colitis at the splenic flexure and descending colon but also identified cirrhotic liver morphology. MRI of the brain was obtained given patient's persistent altered mentation which was negative for any acute findings. Patient was admitted to the hospital and started on empiric antibiotics with Zosyn, eventually urine culture returned showing Klebsiella which was sensitive to Bactrim, Cipro, levofloxacin, Zosyn. She is completed 4 days of IV Zosyn at this time, she will be transition to levofloxacin at discharge. She has an appointment scheduled with her primary care doctor in 3 days. Additionally she was seen by Dr. 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 He recommends starting Keppra 250 mg twice daily for seizure prophylaxis and treatment and she will follow-up in his clinic to arrange for a 3-day ambulatory video EEG. Follow-up with Dr. Francisco to 2 weeks. Continue other home medications as previously prescribed, keep a close eye on the use of her muscle relaxer chlorzoxazone and the Seroquel. Please also discuss CT findings of cirrhotic liver morphology with PCP. LFTs are within normal limits, ammonia level was normal, INR was initially elevated at 1.94 but is down to 1.17 at this time. Diet: Regular Activity: Ad adrián Followup: Noel Francisco MD [ASSOCIATE-ACTIVE - CAN ADMIT] - 1-2 Weeks Angel Hyde MD [Primary Care Provider] - 2-3 Days Time spent managing pt's care (in minutes): 39
== END 2025-04-18 11:56 | disposition home or self-care (01) | DRG 385 ==
LOC: ER 10:59 → ERHOLD 15:29 → 2ND 16:12
PROVIDERS: ADMIT Internal Medicine; ATTEND Hospitalist
DX: K51.50 Left sided colitis without complications (principal); G93.41 Metabolic encephalopathy; J18.9 Pneumonia, unspecified organism; F05 Delirium due to known physiological condition; N39.0 Urinary tract infection, site not specified; G40.209 Localization-related (focal) (partial) symptomatic epilepsy and epileptic syndromes with complex partial seizures, not intractable, without status epilepticus; I10 Essential (primary) hypertension; D50.9 Iron deficiency anemia, unspecified; K74.60 Unspecified cirrhosis of liver; B96.1 Klebsiella pneumoniae [K. pneumoniae] as the cause of diseases classified elsewhere; Z79.52 Long term (current) use of systemic steroids; Z79.899 Other long term (current) drug therapy
CPT/HCPCS: 36415; 70450; 70551; 71045; 73552; 74177; 80048; 80053; 80076; 80307; 81001; 82077; 82140; 82607; 82803; 83540; 83690; 83735; 84100; 84145; 84439; 84443; 84466; 84484; 85025; 85610; 85730; 86140; 87077; 87086; 87088; 87186; 93005; 96361; 96365; 96366; 96368; 96375; 97110; 97116; 97161; 97530; 99285; J0456; J0696; J1650; J2543; J3480; J7030; J7050; J7614; Q9967